=== PATIENT | male | born 1935 | race Caucasian/White ===

== ENCOUNTER 2016-09-05 05:11 | Observation (INO) | payer OTHER ==
[2016-08-27 11:53] VITALS: BMI 24.0
--- NOTE | 2016-08-27 12:24 | PAT Medication Instructions ---
Service Date Aug 27, 2016. Current Home Medication List Aspirin (Aspirin Tab-Chewable *), 1 TABLET PO HS Metoprolol Succ (Toprol Xl) (Toprol-Xl), 1 TABLET PO HS Nitroglycerin (Nitrostat), 0.4 MG UT PRN Simvastatin (Zocor), 1 TABLET PO HS Medication Instructions For Your Scheduled Surgery - Continue as directed: Nitroglycerin (Nitrostat), 0.4 MG UT PRN - Take the following medications as scheduled the night before surgery: Metoprolol Succ (Toprol Xl) (Toprol-Xl), 1 TABLET PO HS Simvastatin (Zocor), 1 TABLET PO HS Aspirin (Aspirin Tab-Chewable *), 1 TABLET PO HS Nothing to eat or drink after midnight If you have any questions please call us at [phone] (Mag Brown PA-C) or [phone] or [phone]
[2016-08-27 13:05] LABS: BASO % 0.3 %; BASO ABS # 0.02 K/uL (0-0.2); COMPLETE YES; EOS % 3.5 %; HEMATOCRIT 43.8 % (42-52); LYMPH % 29.4 %; LYMPH ABS # 1.92 K/uL (1.2-3.4); MEAN CELL VOLUME 99.1 fL (80-100); MEAN CORPUSCULAR HEMOGLOBIN 33.7 pg (25-34); MEAN PLATELET VOLUME 11.5 fL (7.4-10.4); MONO % 7.5 %; NEUT % 59.3 %; PLATELET COUNT 186 K/uL (130-400); RED BLOOD COUNT 4.42 M/uL (4.7-6.1); WHITE BLOOD COUNT 6.53 K/uL (4.8-10.8)
[2016-08-27 13:41] LABS: BUN/CREATININE RATIO 14.5 (10-20); CALCIUM 9.2 mg/dl (8.5-10.1); CREATININE 1.1 mg/dl (0.60-1.40); POTASSIUM 4.8 mmol/L (3.5-5.1)
[~2016-09-05] VITALS: Ht 180.3 cm; Wt 78.8 kg
[2016-09-05] VITALS (11 sets, daily range): BP systolic 139–163; BP diastolic 69–78; PULSE 56–82; TEMP 36.3–36.6; O2SAT 92–97; Ht 180.3 cm; Wt 78.8 kg
[~2016-09-05 05:11] MED LIST: ASPCH81 PO; METO50TA7 PO; NTRGSL/4 UT; SIMV20TA2 PO
[2016-09-05] MEDS ORDERED: CEFAZOLIN 2000 MG/60 ML D5W IV SCH (06:00)
[2016-09-05] MEDS ORDERED: LACTATED RINGER'S 1000ML 1,000 ML IV SCH ×2 (06:00→13:00)
[2016-09-05] MEDS ORDERED: MIDAZOLAM HCL 1 MG/ML 2ML VIAL ONE (06:39)
[2016-09-05] MEDS ORDERED: ONDANSETRON INJ 2 MG/ML 2 ML VIAL ONE (06:39)
[2016-09-05] MEDS ORDERED: FENTANYL CITRATE INJ 50 MCG/1 ML 2 ML VIAL ONE ×2 (06:39→09:58)
[2016-09-05] MEDS ORDERED: PROPOFOL IV EMULSION 10 MG/ML 20 ML VIAL IV ONE (06:39)
[2016-09-05] MEDS ORDERED: LIDOCAINE HCL 2% 2 ML VIAL (20MG/ML) ONE (06:39)
[2016-09-05] MEDS ORDERED: DEXAMETHASONE SOD INJ 4 MG/ML VIAL ONE (06:39)
[2016-09-05] MEDS ORDERED: BUPIVACAINE 0.5 % 5 MG/1 ML MPF 30ML VIAL INJ ONE (07:51)
[2016-09-05] MEDS ORDERED: CEFAZOLIN SOD 1 GM VIAL IRRIG ONE (07:51)
[2016-09-05] MEDS ORDERED: NALOXONE HCL 0.4 MG/1 ML VIAL/CARP IV PRN (08:00)
[2016-09-05] MEDS ORDERED: LABETALOL HCL IV 5 MG/ML 20ML IV PRN (08:00)
[2016-09-05] MEDS ORDERED: ONDANSETRON INJ 2 MG/ML 2 ML VIAL IV PRN ×2 (08:00→09:00)
[2016-09-05] MEDS ORDERED: PROMETHAZINE HCL INJ 12.5 MG in SODIUM CHLORIDE 0.9% 50ML 50 ML IV PRN (08:00)
[2016-09-05] MEDS ORDERED: EpHEDrine SULFATE INJ 50 MG/ML AMP IV PRN (08:00)
[2016-09-05] MEDS ORDERED: HYDROmorphone INJ 1 MG/ML SYR IV PRN (08:00)
[2016-09-05] MEDS ORDERED: ATROPINE SULFATE 0.1 MG/ML 5ML SYR IV PRN (08:00)
--- NOTE | 2016-09-05 08:46 | [facility] Operative Report ---
Operative Report Operative Date Sep 05, 2016. Pre-Operative Diagnosis Bilateral inguinal hernia Post-Operative Diagnosis same Procedure(s) Performed bilateral inguinal hernia repair Surgeon Dr Olvin Steinberg Estimated Blood Loss 10 Findings direct hernias Specimens A: LIPOMA LEFT Anesthesia gen/ LMA Complication(s) None Disposition Recovery Room / PACU I attest to the content of the Intraoperative Record and any orders documented therein. Any exceptions are noted below.
[2016-09-05] MEDS ORDERED: HYDROCODONE/ACETAMOPHEN 5/325MG TAB PO PRN ×2 (09:00)
[2016-09-05] MEDS ORDERED: NITROGLYCERIN 0.4 MG SL PER TAB CHARGE UT PRN (09:00)
[2016-09-05] MEDS ORDERED: MoRPHine SULFATE 2 MG/ML CARP IV PRN (09:00)
[2016-09-05] MEDS ORDERED: MoRPHine SULFATE 4 MG/ML 1 ML CARP\\VIAL IV PRN (09:00)
--- NOTE | 2016-09-05 09:16 | OPERATIVE REPORT ---
DATE OF OPERATION: 09/05/2016 NAME OF OPERATION: Bilateral inguinal hernia repair. PREOPERATIVE DIAGNOSIS: Bilateral inguinal hernias. POSTOPERATIVE DIAGNOSIS: Same with direct defects. STAFF SURGEON: Dr. Steinberg. ANESTHESIA: General LMA. PROCEDURE: The patient was brought into the operating room and placed on the operating table in a supine position. [place] catheter was placed. Pneumatic stockings. His abdomen was prepped and draped in usual fashion. The patient was marked bilaterally for inguinal hernia incisions. Right side was approached first. Skin and subcutaneous tissue were anesthetized. Incision made parallel to the inguinal ligament on the right side, carrying dissection down identifying the external oblique fibers incising them along their length to the external ring, mobilizing the cord structures, identifying a direct hernia. The hernia was reduced. A mesh plug placed, secured to surrounding tissue using 2-0 Ethibond suture. A mesh patch placed into the floor of the canal around the cord structures, secured using 2-0 Ethibond suture. The ilioinguinal and iliohypogastric nerves were identified on both sides during the operation. The area was irrigated with antibiotic solution. The external oblique fibers closed over the mesh on the right side, secured using 2-0 Ethibond suture, then the site anesthetized using 0.5% plain Marcaine. Subcutaneous tissue reapproximated using 2-0 plain catgut suture, then the skin reapproximated using 4-0 nylon and Steri-Strips. The left side was then approached. A similar incision made carrying dissection down identifying the external oblique fibers, incised along their length to the external ring. A similar hernia, but a slight bit larger. Was reduced and a mesh plug placed into the defect, secured to surrounding tissue using 2-0 Ethibond suture. Then a mesh patch placed into the floor of the canal around the cord structures, secured using 2-0 Ethibond suture. Irrigated with antibiotic solution. The external oblique fibers then closed over the mesh around the cord structures using 2-0 Ethibond suture. Then the site anesthetized using 0.5% plain Marcaine. Subcutaneous tissue reapproximated using 2-0 plain catgut suture, then the skin reapproximated using 4-0 nylon suture and Steri-Strips. Dressings were applied and the patient transferred to recovery room in stable condition. I attest to the content of the Intraoperative Record and any orders documented therein. Any exceptio ns are noted below.
[2016-09-05] MEDS ORDERED: IV FLUIDS COMPLETED PRN (10:00)
--- NOTE | 2016-09-05 10:03 | Anesthesiology Progress Note ---
Anesthesia Post Op Note Date & Time Sep 05, 2016 at 10:02 Vital Signs Pain Intensity: 0 Vital Signs Past 12 Hours Date Time Temp Pulse Resp B/P Pulse Ox O2 Delivery O2 Flow Rate FiO2 09/05/16 09:45 63 16 158/68 97 Nasal Cannula 2 09/05/16 09:35 36.8 62 19 158/79 100 Nasal Cannula 2 09/05/16 09:25 65 16 158/75 95 Nasal Cannula 2 09/05/16 09:15 66 20 146/76 100 Mask 10 09/05/16 09:05 66 17 126/72 100 Mask 10 09/05/16 08:55 36.1 71 17 163/76 100 Mask 10 09/05/16 05:56 36.6 20 97 Room Air 09/05/16 05:40 36.6 58 20 158/77 97 Room Air Notes Mental Status: alert / awake / arousable, participated in evaluation Pt Amnestic to Procedure: Yes Nausea / Vomiting: adequately controlled Pain: adequately controlled Airway Patency, RR, SpO2: stable & adequate BP & HR: stable & adequate Hydration State: stable & adequate Anesthetic Complications: no major complications apparent
[2016-09-05] MEDS: DOCUSATE SODIUM/SENNA 50/8.6MG TAB PO SCH ×2 (11:44→21:07)
[2016-09-05] MEDS: MAGNESIUM HYDROXIDE SUSP 30 ML UDC PO SCH ×2 (11:47→21:07)
[2016-09-05] MEDS: CEFAZOLIN IV 1,000 MG in DEXTROSE 5% 50ML 50 ML IV SCH ×2 (13:30→20:10)
[2016-09-05] MEDS ORDERED: CEPH500C2 PO (14:28)
[2016-09-05] MEDS ORDERED: HYDR-5688 PO (14:28)
--- NOTE | 2016-09-05 14:32 | Discharge Instructions ---
Discharge Instructions Admission Reason for Admission: Bilateral Inguinal Hernias Discharge Discharge Diagnosis / Problem: bilateral inguinal hernias Discharge Goals Goal(s): Decrease discomfort, Improve function, Improve disease control Activity Recommendations Activity Limitations: as noted below Lifting Limitations: no more than 10 pounds Exercise/Sports Limitations: until after follow-up appointment May Resume Sexual Activity: when tolerated Shower/Bathe: tomorrow Driving or Machine Use: 1 week SPECIAL CARE INSTRUCTIONS: * Cover incisions and change daily for comfort/drainage. * Avoid constipation- may use Senokot S and Milk of magnesia twice daily as directed on the package * May use ibuprofen for pain as tolerated. * Expect some swelling and bruising. Call your doctor if: * Temperature above 101 degrees * Pain not relieved by pain medicine ordered * There is increased drainage or redness from any incision * You have any unanswered questions or concerns [phone]. FOLLOW UP VISIT: If not already scheduled, please call the office for a follow-up visit. for next week- wound check and some sutures OFFICE PHONE NUMBER: Dr. Steinberg Office . Current Hospital Diet Patient's current hospital diet: Regular Diet Discharge Diet Recommended Diet: Regular Diet Procedures Procedures Performed: Open bilateral inguinal hernia repair Pending Studies Studies pending at discharge: no Medical Emergencies . Who to Call and When: Medical Emergencies: If at any time you feel your situation is an emergency, please call 911 immediately. . Non-Emergent Contact Non-Emergency issues call your: Surgeon . "Provider Documentation" section prepared by Olvin Steinberg. VTE Core Measure Inpt VTE Proph given/why not?: SCD's
--- NOTE | 2016-09-05 16:08 | History and Physical ---
History & Physical Date & Time of Service: Sep 05, 2016 at 15:50 Chief Complaint: Bilateral Inguinal Hernias Primary Care Physician: Bogdan Poole M.D. History of Present Illness Source: patient, family, clinic records, hospital records this is a 80 yo m that is s/p bilateral inguinal hernia. The patient had the surgery on 09/05/16 and patient tolerated the surgery well. He does have a rather significant cardiovascular history. In mar the patient experienced an inferior wall OK. While hospitalization he experienced a second OK and a stent was done a few days later. In May he had a CABg with 2 vessels. Aside from this OK he has been rather healthy. He works out daily and can bike up to 15 miles without SOB/ chest pain. He used to smoker but quit in 1972. He only takes his Torpol and a Statin for his heart as well as a baby ASA and NTG prn. Past Medical/Surgical History Myocardial Infarction S/P Bilateral Inguinal hernia repair HTN Hyperlipidemia Family History Myocardial infarction in first degree male relative FATHER Stroke MOTHER Social History Smoking Status: Former Smoker Smokeless Tobacco Use: No Alcohol Use: none Drug Use: none Marital Status: Housing status: lives with family Occupational Status: retired Multi-Drug Resistant Organisms History of MDRO: No Allergies Coded Allergies: No Known Allergies (Verified , 09/05/16) Home Medications Scheduled Aspirin (Aspirin Tab-Chewable *), 1 TABLET PO HS Cephalexin Monohydrate (Keflex), 500 MG PO TID Metoprolol Succ (Toprol Xl) (Toprol-Xl), 1 TABLET PO HS Nitroglycerin (Nitrostat), 0.4 MG UT PRN Simvastatin (Zocor), 1 TABLET PO HS Scheduled PRN Hydrocodone/Acetaminophen 5MG/325MG ([place] 5MG/325MG), 1-2 TABLET PO q 6 hrs PRN for Pain Review of Systems Constitutional: No fever Eyes: No worsening of vision ENT: No hearing loss Respiratory: No cough, No dyspnea at rest, No dyspnea on exertion, No shortness of breath, No sputum, No wheezing Cardiovascular: No chest pain Abdomen: No constipation, No diarrhea, No nausea, No pain, No vomiting Musculoskeletal: No joint pain, No muscle pain Neurologic: No balance problems, No memory loss, No numbness/tingling, No weakness Psychiatric: No depression symptoms Endocrine: No fatigue Integumentary: No rash Physical Exam Vital Signs Date Time Temp Pulse Resp B/P Pulse Ox O2 Delivery O2 Flow Rate FiO2 09/05/16 14:59 36.4 62 16 139/69 92 Room Air 09/05/16 13:21 148/69 09/05/16 13:10 61 14 163/78 96 Room Air 09/05/16 12:10 36.3 61 19 158/77 95 Room Air 09/05/16 11:10 63 19 160/78 92 Room Air 09/05/16 10:41 36.3 58 18 158/74 95 Nasal Cannula 2.0 09/05/16 10:10 92 Nasal Cannula 2.0 09/05/16 10:10 Nasal Cannula 2.0 09/05/16 10:10 36.5 82 16 154/76 92 2.0 09/05/16 09:45 63 16 158/68 97 Nasal Cannula 2 09/05/16 09:35 36.8 62 19 158/79 100 Nasal Cannula 2 09/05/16 09:25 65 16 158/75 95 Nasal Cannula 2 09/05/16 09:15 66 20 146/76 100 Mask 10 09/05/16 09:05 66 17 126/72 100 Mask 10 09/05/16 08:55 36.1 71 17 163/76 100 Mask 10 09/05/16 05:56 36.6 20 97 Room Air 09/05/16 05:40 36.6 58 20 158/77 97 Room Air General Appearance: WD/WN, no apparent distress Head: normocephalic, atraumatic Eyes: normal inspection ENT: normal ENT inspection Neck: supple Respiratory/Chest: lungs clear, normal breath sounds, no respiratory distress, no accessory muscle use Cardiovascular: regular rate, rhythm, no murmur Abdomen/GI: normal bowel sounds, non tender, soft Back: normal inspection Extremities/Musculoskelatal: no calf tenderness, no pedal edema Neurologic/Psych: alert, normal mood/affect, oriented x 3 Skin: normal color, warm/dry, no rash, + pertinent finding (dressings on bilat incisions) Lymphatic: no adenopathy Diagnostics Laboratory Results Results Past 24 Hours Test 09/05/16 05:35 09/05/16 09:10 Range/Units Bedside Glucose 86 90 70-99 mg/dl EKG Sinus miguel QTC 408 no ischemic changes no ectopic beats Impression Assessment and Plan This is a 80 yo m s/p bilat inguinal hernia repair with a h/o OK/ CABG. S/P Bilat Inguinal Hernia Repair - pain control as per primary team HTN - continue metoprolol - earlier elevations most likely stress induced so will follow vitals Hyper Cholesterolemia - continue simvastatin H/O OK - Continue medications as above - cont NTG prn - hold ASA for now DVT Prophylaxis Resident Physician Supervision Note: I interviewed and examined the patient. Discussed with Dr. Norris and agree with findings and plan as documented in the note. Any exceptions or clarifications are listed here: None Documented By: Ke Hernandez feeling OK. no complaints vitals noted, nad pleasant breathing unlabored CAD - stable. continue home meds except holding asa for now Level of Care Med/Surg VTE Prophylaxis VTE Risk Assessment Done? Y/N: Yes Risk Level: Moderate Given or contraindicated: SCD's Social Service Consult None Apply Note Total Time: Critical Care 30 - 74 minutes Additional Copies To Bogdan Poole M.D.
[2016-09-05] MEDS ORDERED: SIMVASTATIN 20 MG TAB PO SCH (21:00)
[2016-09-05] MEDS ORDERED: METOPROLOL SUCC 50MG EXT REL TAB PO SCH (21:00)
[2016-09-06] MEDS: CEFAZOLIN IV 1,000 MG in DEXTROSE 5% 50ML 50 ML IV SCH ×2 (01:09→08:24)
[2016-09-06 02:46] VITALS: BP 151/74; PULSE 49; TEMP 36.3; O2SAT 97
--- NOTE | 2016-09-06 06:01 | Surgery Progress Note ---
Surgery Progress Note Date of Service Sep 06, 2016. Subjective + feeling well, + pain controlled Objective Vital Signs: Date Time Temp Pulse Resp B/P Pulse Ox O2 Delivery O2 Flow Rate FiO2 09/06/16 02:46 36.3 49 16 151/74 97 Room Air 09/05/16 23:40 36.5 56 16 157/72 93 Room Air 09/05/16 23:20 Room Air 09/05/16 19:54 36.3 65 16 150/71 93 Room Air 09/05/16 15:40 Room Air 09/05/16 14:59 36.4 62 16 139/69 92 Room Air 09/05/16 13:21 148/69 09/05/16 13:10 61 14 163/78 96 Room Air 09/05/16 12:10 36.3 61 19 158/77 95 Room Air 09/05/16 11:10 63 19 160/78 92 Room Air 09/05/16 10:41 36.3 58 18 158/74 95 Nasal Cannula 2.0 09/05/16 10:10 92 Nasal Cannula 2.0 09/05/16 10:10 Nasal Cannula 2.0 09/05/16 10:10 36.5 82 16 154/76 92 2.0 09/05/16 09:45 63 16 158/68 97 Nasal Cannula 2 09/05/16 09:35 36.8 62 19 158/79 100 Nasal Cannula 2 09/05/16 09:25 65 16 158/75 95 Nasal Cannula 2 09/05/16 09:15 66 20 146/76 100 Mask 10 09/05/16 09:05 66 17 126/72 100 Mask 10 09/05/16 08:55 36.1 71 17 163/76 100 Mask 10 General Appearance: no apparent distress Respiratory/Chest: no respiratory distress Incision(s): dry, intact Laboratory Results: Results Past 24 Hours Test 09/05/16 09:10 09/06/16 04:44 Range/Units Bedside Glucose 90 70-99 mg/dl Assessment & Plan 09/06/16- s/p arnoldo ing hernia repair- doing well- d/c home
[2016-09-06 06:10] LABS: HEMATOCRIT 38.5 % (42-52); MEAN CELL VOLUME 98.7 fL (80-100); MEAN CORPUSCULAR HEMOGLOBIN 33.1 pg (25-34); MEAN CORPUSCULAR HGB CONC 33.5 g/dl (32-36); MEAN PLATELET VOLUME 11.2 fL (7.4-10.4); PLATELET COUNT 169 K/uL (130-400); WHITE BLOOD COUNT 13.38 K/uL (4.8-10.8)
[2016-09-06 06:41] LABS: CREATININE 1.1 mg/dl (0.60-1.40)
[2016-09-06 06:42] LABS: CALCIUM 8.4 mg/dl (8.5-10.1); POTASSIUM 3.7 mmol/L (3.5-5.1)
[2016-09-06 07:36] VITALS: BP 152/71; PULSE 51; TEMP 36.4; O2SAT 95
--- NOTE | 2016-09-06 07:55 | DISCHARGE SUMMARY ---
PRINCIPAL DIAGNOSIS: Bilateral inguinal hernias. PROCEDURES: The patient underwent open bilateral inguinal hernia repair. HISTORY OF PRESENT ILLNESS: The patient is a 80-year-old male with bilateral inguinal hernias brought to the hospital for elective open repair. HOSPITAL COURSE: The patient was brought into the hospital and taken to the operating room where he underwent bilateral open inguinal hernia repair. He did tolerate the procedure well, did well postoperatively and is voiding well. I do not think he can be discharged home today to be followed in the surgical clinic next week.
[2016-09-06] MEDS: MAGNESIUM HYDROXIDE SUSP 30 ML UDC PO SCH (08:01)
[2016-09-06] MEDS: DOCUSATE SODIUM/SENNA 50/8.6MG TAB PO SCH (08:01)
[2016-09-06 08:22] VITALS: BP 152/71; PULSE 51; TEMP 36.4; O2SAT 95
--- NOTE | 2016-09-06 10:38 | Anesthesiology Progress Note ---
Anesthesia Post Op Note Date & Time Sep 06, 2016 at 10:37 Vital Signs Pain Intensity: 0.0 Vital Signs Past 12 Hours Date Time Temp Pulse Resp B/P Pulse Ox O2 Delivery O2 Flow Rate FiO2 09/06/16 08:22 36.4 51 14 95 Room Air 09/06/16 07:36 36.4 51 14 152/71 95 Room Air 09/06/16 07:34 Room Air 09/06/16 02:46 36.3 49 16 151/74 97 Room Air 09/05/16 23:40 36.5 56 16 157/72 93 Room Air 09/05/16 23:20 Room Air Notes Mental Status: alert / awake / arousable, participated in evaluation Pt Amnestic to Procedure: Yes Nausea / Vomiting: adequately controlled Pain: adequately controlled Airway Patency, RR, SpO2: stable & adequate BP & HR: stable & adequate Hydration State: stable & adequate Anesthetic Complications: no major complications apparent
--- NOTE | 2016-09-06 11:24 | Family Medicine Progress Note ---
Progress Note Date of Service Sep 06, 2016. Subjective Pt evaluation today including: conversation w/ patient, physical exam, chart review, lab review Pain: 0/10 PO Intake: WNL Voiding: no voiding problems Doing very well! No chest pain SOB Constitutional: No fever Eyes: No worsening of vision ENT: No hearing loss Respiratory: No cough, No dyspnea on exertion, No shortness of breath, No sputum, No wheezing Cardiovascular: No chest pain Abdomen: No constipation, No diarrhea, No nausea, No pain, No vomiting Musculoskeletal: No joint pain, No muscle pain Male : No dysuria Neurologic: No balance problems, No memory loss, No weakness Psychiatric: No anxiety, No depression symptoms Endo: No fatigue Medications Medications Administered Medications (Trade) Dose Ordered Sig/Fer Route Start Time Stop Time Status Last Admin Dose Admin Cefazolin Sodium 60 ml @ 100 mls/hr PREOP IV 09/05/16 06:00 09/05/16 18:00 DC 09/05/16 06:55 100 MLS/HR Lactated Ringer's (Lr 1000ml) 1,000 ml @ 15 mls/hr Q24H IV 09/05/16 06:00 09/05/16 10:50 DC 09/05/16 06:16 15 MLS/HR Cefazolin Sodium (Ancef Inj) 1,000 mg ONE ONCE IRRIG 09/05/16 07:51 09/05/16 07:53 DC 09/05/16 07:54 1,000 MG Bupivacaine HCl (Marcaine 0.5% MPF Inj) 18 ml ONE ONCE INJ 09/05/16 07:51 09/05/16 07:53 DC 09/05/16 07:51 40 ML Metoprolol Succinate (Toprol Xl Tab) 50 mg HS PO 09/05/16 21:00 09/06/16 10:16 DC 09/05/16 21:07 50 MG Simvastatin 20 mg 20 mg HS PO 09/05/16 21:00 09/06/16 10:16 DC 09/05/16 21:07 20 MG Lactated Ringer's 1,000 ml @ 50 mls/hr Q20H IV 09/05/16 13:00 09/06/16 05:58 DC 09/05/16 10:58 50 MLS/HR Cefazolin Sodium/ Dextrose (Ancef Iv/D5 50ml) 55 ml @ 100 mls/hr Q6H IV 09/05/16 14:00 09/06/16 10:16 DC 09/06/16 08:24 100 MLS/HR Acetaminophen/ Hydrocodone Bitart ([place] 5/325 Tab) 1 tab Q4 PRN PO 09/05/16 09:00 09/06/16 10:16 DC 09/05/16 20:10 1 TAB Senna/Docusate Sodium (Senokot S Tab) 1 tab BID PO 09/05/16 11:00 09/06/16 10:16 DC 09/06/16 08:01 1 TAB Magnesium Hydroxide (Milk Of Magnesia Susp) 30 ml BID PO 09/05/16 11:00 09/06/16 10:16 DC 09/05/16 21:07 30 ML Objective Vital Signs Date Time Temp Pulse Resp B/P Pulse Ox O2 Delivery O2 Flow Rate FiO2 09/06/16 08:22 36.4 51 14 95 Room Air 09/06/16 07:36 36.4 51 14 152/71 95 Room Air 09/06/16 07:34 Room Air 09/06/16 02:46 36.3 49 16 151/74 97 Room Air 09/05/16 23:40 36.5 56 16 157/72 93 Room Air 09/05/16 23:20 Room Air 09/05/16 19:54 36.3 65 16 150/71 93 Room Air 09/05/16 15:40 Room Air 09/05/16 14:59 36.4 62 16 139/69 92 Room Air 09/05/16 13:21 148/69 09/05/16 13:10 61 14 163/78 96 Room Air 09/05/16 12:10 36.3 61 19 158/77 95 Room Air Physical Exam General Appearance: WD/WN, no apparent distress Eyes: normal inspection ENT: normal ENT inspection Neck: supple Respiratory/Chest: lungs clear, normal breath sounds, no respiratory distress, no accessory muscle use Cardiovascular: regular rate, rhythm, no murmur Abdomen: normal bowel sounds, non tender, soft Extremities: non-tender, normal inspection Neurologic/Psychiatric: alert, oriented x 3 Skin: normal color, warm/dry, no rash, + pertinent finding (wound is clean dry and intact, dressing on) Lymphatic: no adenopathy Laboratory Results Results Past 24 Hours Test 09/06/16 05:00 Range/Units White Blood Count 13.38 4.8-10.8 K/uL Red Blood Count 3.90 4.7-6.1 M/uL Hemoglobin 12.9 14.0-18.0 g/dL Hematocrit 38.5 42-52 % Mean Corpuscular Volume 98.7 80-100 fL Mean Corpuscular Hemoglobin 33.1 25-34 pg Mean Corpuscular Hemoglobin Concent 33.5 32-36 g/dl RDW Standard Deviation 45.1 36.4-46.3 fL RDW Coefficient of Variation 12.6 11.5-14.5 % Platelet Count 169 130-400 K/uL Mean Platelet Volume 11.2 7.4-10.4 fL Sodium Level 143 136-145 mmol/L Potassium Level 3.7 3.5-5.1 mmol/L Chloride Level 106 98-107 mmol/L Carbon Dioxide Level 28 21-32 mmol/L Anion Gap 9.0 3-11 mmol/L Blood Urea Nitrogen 19 7-18 mg/dl Creatinine 1.10 0.60-1.40 mg/dl Est Creatinine Clear Calc Drug Dose 58.9 ml/min Estimated GFR () 74.1 Estimated GFR (Non- 64.0 BUN/Creatinine Ratio 17.0 10-20 Random Glucose 120 70-99 mg/dl Calcium Level 8.4 8.5-10.1 mg/dl Assessment and Plan This is a 80 yo m s/p bilat inguinal hernia repair with a h/o NH/ CABG. Anticipate d/c today S/P Bilat Inguinal Hernia Repair - pain control as per primary team HTN - continue metoprolol - earlier elevations most likely stress induced so will follow vitals Hyper Cholesterolemia - continue simvastatin H/O NH - Continue medications as above - cont NTG prn - hold ASA for now DVT Prophylaxis Resident Physician Supervision Note: I interviewed and examined the patient. Discussed with Dr. Norris and agree with findings and plan as documented in the note. Any exceptions or clarifications are listed here: None Documented By: Ke Hernandez feeling good. ready to go home. no cardiac sx. vitals noted, nad, breathing unlabored, no appearance of pain. CAD - stable. resume asa once OK w surgery. medically stable for discharge. otherwise as above Continued [facility] stay due to: other Discharge planning: home
== END 2016-09-06 10:15 | disposition home or self-care (01) ==
LOC: ENRESERVTM → ENRESERVDT → C.ACU 05:11 → C.MSN 08:52
PROVIDERS: ADMIT Surgery; ATTEND Surgery
DX: K40.20 Bilateral inguinal hernia, without obstruction or gangrene, not specified as recurrent (principal); I10 Essential (primary) hypertension; E78.00 Pure hypercholesterolemia, unspecified; E78.5 Hyperlipidemia, unspecified; I25.10 Atherosclerotic heart disease of native coronary artery without angina pectoris; I25.2 Old myocardial infarction; Z79.82 Long term (current) use of aspirin; Z95.1 Presence of aortocoronary bypass graft; Z87.891 Personal history of nicotine dependence; Z82.49 Family history of ischemic heart disease and other diseases of the circulatory system; Z82.3 Family history of stroke

== ENCOUNTER → 2017-05-31 | Outpatient (CLI) | payer OTHER ==
[2017-05-31 09:38] LABS: BASO % 0.4 %; BASO ABS # 0.03 K/uL (0-0.2); COMPLETE YES; EOS % 0.9 %; HEMATOCRIT 45.5 % (42-52); IG% 0.6 %; LYMPH % 20.2 %; LYMPH ABS # 1.72 K/uL (1.2-3.4); MEAN CELL VOLUME 97.8 fL (80-100); MEAN CORPUSCULAR HEMOGLOBIN 33.1 pg (25-34); MEAN CORPUSCULAR HGB CONC 33.8 g/dl (32-36); MONO % 8.6 %; NEUT % 69.3 %; PLATELET COUNT 259 K/uL (130-400); RED BLOOD COUNT 4.65 M/uL (4.7-6.1); WHITE BLOOD COUNT 8.53 K/uL (4.8-10.8)
[2017-05-31 10:12] LABS: ALT/SGPT 33 U/L (12-78); BLOOD UREA NITROGEN 15 mg/dl (7-18); BUN/CREATININE RATIO 15.4 (10-20); CALCIUM 9.3 mg/dl (8.5-10.1); CARBON DIOXIDE 27 mmol/L (21-32); CHLORIDE 103 mmol/L (98-107); CHOLESTEROL 140 mg/dl (0-200); GLUCOSE 104 mg/dl (70-99); SODIUM 136 mmol/L (136-145)
[2017-05-31 10:23] LABS: ALB/GLOB RATIO 0.9 (0.9-2); ALKALINE PHOSPHATASE 64 U/L (45-117); AST/SGOT 24 U/L (15-37); CHOLESTEROL/HDL RATIO 2.3; ESTIMATED AVERAGE GLUCOSE 120 mg/dl; HA1C FLAG Normal (Normal); HDL CHOLESTEROL 61 mg/dl; LDL CHOLESTEROL CALCULATED 68 mg/dl; TRIGLYCERIDES 54 mg/dl (0-150); VERY LOW DENSITY LIPOPROT CALC 11 mg/dl
[2017-05-31 10:29] LABS: URINE APPEARANCE CLEAR (CLEAR); URINE BILIRUBIN NEG (NEG); URINE COLOR YELLOW; URINE EPITHELIAL CELL AUTO 0-5 /lpf (0-5); URINE NITRITE NEG (NEG); URINE SPECIFIC GRAVITY 1.007 (1.000-1.030); UROBILINOGEN NEG (NEG); ZZUR CULT IF INDIC CLEAN CATCH NO
[2017-05-31 10:30] LABS: MANUAL MICROSCOPIC REQUIRED? NO; REVIEW REQ? NO
== END | disposition home or self-care (01) ==
LOC: C.LAB1850 08:45
PROVIDERS: ATTEND Internal Medicine
DX: I48.0 Paroxysmal atrial fibrillation (principal); E78.00 Pure hypercholesterolemia, unspecified; R73.01 Impaired fasting glucose

== ENCOUNTER → 2017-06-27 | Outpatient (CLI) | payer OTHER ==
[2017-06-27 12:43] LABS: ALT/SGPT 35 U/L (12-78); AST/SGOT 23 U/L (15-37); BLOOD UREA NITROGEN 19 mg/dl (7-18); BUN/CREATININE RATIO 17.5 (10-20); CALCIUM 8.9 mg/dl (8.5-10.1); CARBON DIOXIDE 28 mmol/L (21-32); CHLORIDE 105 mmol/L (98-107); CREATININE 1.11 mg/dl (0.60-1.40); GLUCOSE 99 mg/dl (70-99); POTASSIUM 4.6 mmol/L (3.5-5.1); SODIUM 139 mmol/L (136-145)
[2017-06-27 12:47] LABS: ALB/GLOB RATIO 1.1 (0.9-2); ALKALINE PHOSPHATASE 43 U/L (45-117)
== END | disposition home or self-care (01) ==
LOC: C.LAB1850 10:27
PROVIDERS: ATTEND Internal Medicine
DX: C61 Malignant neoplasm of prostate (principal); N40.0 Benign prostatic hyperplasia without lower urinary tract symptoms; R77.1 Abnormality of globulin

== ENCOUNTER → 2017-09-07 | Outpatient (CLI) | payer OTHER ==
--- NOTE | 2017-09-07 11:06 | DIAGNOSTIC IMAGING REPORT ---
CHEST 2 VIEWS ROUTINE CLINICAL HISTORY: Fever and cough. COMPARISON STUDY: Chest radiograph February 01, 2011. FINDINGS: There are median sternotomy clips from bypass grafting. No pneumothorax or pleural effusion is noted. There is no consolidation to suggest pneumonia. Cardiomediastinal silhouette is stable. Pulmonary vascularity is normal. IMPRESSION: No acute cardiopulmonary findings. Electronically signed by: Boy Martinez M.D. 09/07/2017 11:04 AM Dictated Date/Time: 09/07/2017 11:03 AM
== END | disposition home or self-care (01) ==
LOC: C.RAD1850 10:25
PROVIDERS: ATTEND Internal Medicine
DX: R05 Cough (principal); R50.9 Fever, unspecified

== ENCOUNTER 2023-08-18 14:50 | Inpatient (IN) ==
--- NOTE | 2023-08-18 14:58 | ED Triage Note ---
Date of Service August 18, 2023 Provider in Triage Author: Dario Ayala History of Present Illness This patient was briefly evaluated while in triage. An abbreviated physical exam was performed. This patient is a 87-year-old Male who presents to the ED for evaluation of intermittent left chest pain that he first noticed last evening while sleeping. The patient was lying on his left side at that time. Patient admits that he did shovel a lot of snow yesterday, and does not know whether it could be from doing so. He did not have any chest pain while shoveling snow. The patient is 24 years status post myocardial infarction, status post stent and CABG x 2. Patient also has history of hypertension, SVT and right bundle branch block. Patient follows with Dr. Currie. Physical Exam CONSTITUTIONAL: Healthy and well nourished. NECK: No JVD or carotid bruits appreciated. RESPIRATORY: Clear to auscultation bilaterally with no wheezing, crackles, rhonchi or stridor. CARDIOVASCULAR: Regular rate and rhythm with no murmurs, rubs or gallops. MUSCULOSKELETAL: No tenderness to palpation over the left anterior chest wall. HEMATOLOGIC: No ecchymosis or petechiae. PSYCHIATRIC: Positive affect. NEUROLOGIC: No focal neurologic deficits noted. Initial orders for labs and / or imaging were placed and patient was placed in the waiting area until a bed is available. Please see further documentation for the full ED course.
[2023-08-18 15:38] LABS: Basophils # (auto) 0.02 K/uL (0.00-0.20); Basophils % (auto) 0.2 %; Eosinophils # (auto) 0.04 K/uL (0.00-0.50); Eosinophils % (auto) 0.3 %; Hematocrit (blood only) 36.3 % (42.0-52.0); Hemoglobin 12.8 g/dl (14.0-18.0); Immature Granulocytes # (auto) 0.04 K/uL (0.01-0.20); Immature Granulocytes % (auto) 0.3 %; Lymphocytes # (auto) 0.69 K/uL (1.20-3.40); Lymphocytes % (auto) 5.5 %; Mean Corpuscular Hemoglobin 33.6 pg (25.0-34.0); Mean Corpuscular Hgb Conc 35.3 g/dL (32.0-36.0); Mean Corpuscular Volume 95.3 fL (80.0-100.0); Mean Platelet Volume 10.2 fL (9.4-12.4); Monocytes # (auto) 1.05 K/uL (0.11-0.59); Monocytes % (auto) 8.3 %; Neutrophils # (auto) 10.75 K/uL (1.40-6.50); Neutrophils % (auto) 85.4 %; Platelet Count 214 K/uL (130-400); RDW Coefficient of Variation 11.9 % (11.5-14.5); RDW Standard Deviation 41.2 fL (36.4-46.3); Red Blood Count 3.81 M/uL (4.70-6.10); White Blood Count 12.59 K/ul (4.8-10.8)
--- NOTE | 2023-08-18 15:43 | XRay Report ---
XR chest 1V not portable CLINICAL HISTORY: Chest pain. COMPARISON STUDY: Chest radiograph November 28, 2022. FINDINGS: Lung volumes are normal. There is no pneumothorax or pleural effusion. No consolidation is present. There is no evidence for pulmonary edema. Mild cardiomegaly is unchanged. Median sternotomy wires and mediastinal surgical clips are noted. IMPRESSION: No acute cardiopulmonary findings. ACT 112: Negative or not required by law. Electronically signed by: Boy Martinez M.D. 08/18/2023 3:42 PM
[2023-08-18 15:54] LABS: Albumin Globulin Ratio 1.5 (0.9-2); Albumin Level 4.6 gm/dl (3.4-5.0); Bilirubin,Total 0.9 mg/dl (0.2-1.0); Calcium 9.7 mg/dl (8.6-10.3); Est GFR (African American) 60.5 ml/min; Est GFR (Non-African American) 52.2 ml/min; Globulin 3.1 gm/dl (2.5-4.0); Potassium 4.4 mmol/L (3.5-5.1); Total Protein 7.7 gm/dl (6.0-8.3)
[2023-08-18 16:00] LABS: Troponin I High Sensitivity 8.6 pg/ml (0-20)
[2023-08-18 16:03] LABS: Partial Thromboplastin Ratio 0.9; Partial Thromboplastin Time 26 Seconds (21-31); Prothrombin Time 11.1 Seconds (9.0-12.0)
[2023-08-18] MEDS ORDERED: ASPIRIN CHEW 324 MG PO STA (18:06)
--- NOTE | 2023-08-18 18:14 | Emergency Department Note ---
Impression & Plan Chest pain, Acute hyponatremia, Urinary tract infection ED Provider Note NAME: ARMOND SUTTON AGE: 87 SEX: M : 1935 ARRIVES VIA: Walk-In INFORMANT: Patient, ED PROVIDER(S): Eduardo Maravilla DO CHIEF COMPLAINT: Chest pain HPI: The patient is an 87-year-old male who presented to the emergency department for evaluation of chest pain. The patient states that he was shoveling snow yesterday. He was mostly using a snowblower. He states that last evening into today he started noticing anterior chest pain. The chest pain was not reproducible. He denies having any leg swelling or leg pain. The patient denies having any fevers or coughing. The patient did not take any nitroglycerin and at this time has no discomfort. He is also been noticing some dysuria and some urinary hesitancy. The patient does have a history of coronary artery disease. He has a history of coronary artery bypass as well. ROS: See above HPI for pertinent positives & negatives. A total of 10 systems reviewed and were otherwise negative. PAST MEDICAL HISTORY: See Below PAST SURGICAL HISTORY: See Below FAMILY HISTORY: See Below SOCIAL HISTORY: See Below HOME MEDICATIONS: See Below ALLERGIES: See Below VITALS: See Below PHYSICAL EXAMINATION: GENERAL: Patient is awake alert in no acute distress patient is resting comfortably and showing no signs of anxiety EYES: The conjunctivae are clear. The pupils are round and reactive. EARS, NOSE, MOUTH AND THROAT: The nose is without any evidence of any deformity. NECK: The neck is nontender and supple. RESPIRATORY: Normal respiratory effort is noted there is no evidence of wheezing rhonchi or rales CARDIOVASCULAR: Regular rate and rhythm noted there no murmurs rubs or gallops normal S1 normal S2. GASTROINTESTINAL: The abdomen is soft. Abdomen is nontender. MUSCULOSKELETAL/EXTREMITIES: There is no evidence of gross deformity full range of motion is noted in the hips and shoulders. SKIN: There is no obvious evidence of any rash. There are no petechiae, pallor or cyanosis noted. NEUROLOGIC: Patient is awake alert and oriented x3 MEDICAL DECISION MAKING: The patient is an 87-year-old male who presented to the emergency department for an evaluation of chest pain. The patient does have a history of coronary artery disease. He appears to be high risk from his history but also he has been having pain that he seems to associate with exertion. Given the patient's laboratory and radiographic studies he does not appear to be having signs of ongoing ischemia at this time. Pain was resolved. Given the patient's risk factors and comorbidities I do feel that he is high risk. For this reason I discussed his condition with the on-call [facility] hospitalist. He was also complaining of some dysuria and frequency. Urinalysis was sent. The patient was treated with aspirin. The patient was also found to be hyponatremic. Further laboratory studies were obtained to try to assess this. It could be related the patient's medications. The patient was reevaluated multiple times and remained pain-free. The patient's urinalysis does appear to be consistent with infection. He was started on Rocephin. Triage Nursing notes reviewed. Prior medical records reviewed Vital Signs: reviewed and remarkable for elevated blood pressure. Differential diagnosis: Cardiac ischemia, aortic dissection, pulmonary embolism, pneumothorax, pneumonia, pericarditis, myocarditis, esophageal rupture, GERD, cholecystitis, pancreatitis, musculoskeletal, as well as other pathologies. ER treatment provided: See below Diagnostics interpreted by me: ECG: EKG was obtained in the emergency department. My interpretation is sinus rhythm at 75 bpm. There was a first-degree AV block noted. A right bundle branch block pattern was noted. There was no PVCs noted. This was compared to a tracing from November 28, 2022. No significant changes were noted. Cardiac Monitoring: An order was placed for continuous cardiac monitoring. The monitor shows a rate of 86 bpm with sinus rhythm. Laboratory studies: As stated above and show below. Imaging studies: See below. Radiographic imaging was reviewed by myself Consultation(s): I discussed this case with Dr. Hernandez who is on-call for the [facility] hospitalist group. 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 Prediabetes Prostate cancer Hyperlipidemia Hypertension Coronary artery disease Surgical History S/P CABG (coronary artery bypass graft) (2000) [place] 2 vessel History of prostate surgery H/O bilateral inguinal hernia repair History of colonoscopy Family History Father Cardiac disorder Myocardial infarction Mother Hypertension Stroke Brother Stroke Other Prostate cancer Denies family history of Ovarian cancer Breast cancer Colorectal cancer Social History Smoking Status: Never smoker Age Started Using Tobacco: 20; Age Quit Using Tobacco: 38; packs per day: 2; Second Hand Exposure: No; Do You Dip or Chew Tobacco: No; Tobacco Cessation Education Requested by Patient: No Hx Alcohol Use: No Hx Substance Use: No Preferred Language: Amharic Communication Ability: Effective Visual Impairment: No Limitations Hearing Ability: Use of Hearing Aid Bank Accountant Required: No Beliefs That Will Affect Care: None marital status: Current Living Situation: Spouse current occupational status: retired Feels Safe at Home: Yes Childhood Exposure to Second-Hand Smoke: Yes Diet: low salt and regular caffeine: Yes Dental Care, Regularly: Yes Physical Activity Frequency: 5-6 Times per Week Physical Activity Frequency Comment: walking, swims, bike rides, weights 45 minutes Seatbelt Use: always Sunscreen Use: Yes Assistive Devices: Glasses and Hearing Aid - Bilateral Allergies Allergies Allergy/AdvReac Type Severity Reaction Status Date / Time No Known Drug Allergies Allergy 0 Verified 08/18/23 19:22 Home Meds Home Medications Medication Instructions Recorded Confirmed aspirin 81 mg tablet,delayed 81 mg PO QPM 10/24/20 08/18/23 release (Adult Low Dose Aspirin) cholecalciferol (vitamin D3) 25 1,000 units PO QAM 10/24/20 08/18/23 mcg (1,000 unit) capsule lisinopril 20 1 tab PO QPM 08/18/23 08/18/23 mg-hydrochlorothiazide 12.5 mg tablet metoprolol succinate 50 mg 50 mg PO QPM 08/18/23 08/18/23 tablet,extended release 24 hr Previous Rx's Medication Instructions Recorded nitroglycerin 0.4 mg sublingual 0.4 mg sublingual Q5M PRN chest 04/03/22 tablet (Nitrostat) pain #25 tabs fluocinolone acetonide oil 0.01 % 5 drp otic (ear) BID PRN itching 7 11/30/22 ear drops days #20 mL atorvastatin 20 mg tablet 20 mg PO DAILY #90 tabs 07/09/23 Results & Data (ED) Vital Signs Vital Signs - 24 hr 08/18/23 14:56 08/18/23 17:59 Temperature 36.5 C Temperature Source Temporal Artery Scan Pulse Rate 84 Pulse Rate [Apical] 87 Respiratory Rate 18 24 Respiratory Effort / Characteristics Non-Labored Spontaneous Respiratory Depth Normal Blood Pressure 117/74 Blood Pressure [Left Arm] 194/88 H Blood Pressure Mean 88 Blood Pressure Mean [Left Arm] 123 Blood Pressure Position Sitting Pulse Oximetry 98 Oxygen Delivery Method Room Air Room Air Sepsis Recent Fever Within 48 Hours No Sepsis New/Unexplained Change in Mental Status No Sepsis Action Taken by Nursing No Action Required Home Medications Current Medication List: was personally reviewed by me Laboratory Data Attestation: I reviewed the patient's lab results. 08/18/23 15:22 08/18/23 15:22 Lab Results 08/18/23 08/18/23 Range/Units 15:22 18:16 WBC 12.59 H (4.8-10.8) K/ul RBC 3.81 L (4.70-6.10) M/uL Hgb 12.8 L (14.0-18.0) g/dl Hct 36.3 L (42.0-52.0) % MCV 95.3 (80.0-100.0) fL MCH 33.6 (25.0-34.0) pg MCHC 35.3 (32.0-36.0) g/dL RDW Std Deviation 41.2 (36.4-46.3) fL RDW Coeff of Renetta 11.9 (11.5-14.5) % Plt Count 214 (130-400) K/uL MPV 10.2 (9.4-12.4) fL Immature Gran % (Auto) 0.3 % Neut % (Auto) 85.4 % Lymph % (Auto) 5.5 % Cecil % (Auto) 8.3 % Eos % (Auto) 0.3 % Baso % (Auto) 0.2 % Neut # (Auto) 10.75 H (1.40-6.50) K/uL Lymph # (Auto) 0.69 L (1.20-3.40) K/uL Cecil # (Auto) 1.05 H (0.11-0.59) K/uL Eos # (Auto) 0.04 (0.00-0.50) K/uL Baso # (Auto) 0.02 (0.00-0.20) K/uL Immature Gran # (Auto) 0.04 (0.01-0.20) K/uL PT 11.1 (9.0-12.0) Seconds INR 1.0 (0.9-1.1) APTT 26 (21-31) Seconds PTT Ratio 0.9 Sodium 127 L (136-145) mmol/L Potassium 4.4 (3.5-5.1) mmol/L Chloride 93 L (98-107) mmol/L Carbon Dioxide 26 (21-32) mmol/L Anion Gap 8 (3-11) BUN 25 H (6-23) mg/dl Creatinine 1.25 (0.6-1.4) mg/dl Est Cr Clr Drug Dosing 46.0 ml/min Est GFR ( Amer) 60.5 ml/min Est GFR (Non-Af Amer) 52.2 ml/min BUN/Creatinine Ratio 20.0 (10-20) Glucose 181 H (70-99(Fasting)) mg/dl Osmolality 276 L (280-300) mOsm/kg Calcium 9.7 (8.6-10.3) mg/dl Total Bilirubin 0.9 (0.2-1.0) mg/dl AST 23 (13-39) U/L ALT 20 (7-52) U/L Alkaline Phosphatase 43 (34-104) U/L Troponin I High Sens 8.6 10.2 (0-20) pg/ml Total Protein 7.7 (6.0-8.3) gm/dl Albumin 4.6 (3.4-5.0) gm/dl Globulin 3.1 (2.5-4.0) gm/dl Albumin/Globulin Ratio 1.5 (0.9-2) Lipase 25 (11-82) U/L Administered Medications Amlodipine Besylate (Amlodipine Besylate 5 Mg Tab) 5 mg PO TODAY@2100 COUNTS INCLUDE 234 BEDS AT THE [facility] Stop: 09/17/23 21:34 Last Admin: 08/18/23 21:41 Dose: 5 mg Documented By: MAYURI Aspirin (Aspirin 81 Mg Ectab) 81 mg PO QPM COUNTS INCLUDE 234 BEDS AT THE [facility] Stop: 09/17/23 20:59 Last Admin: 08/18/23 21:21 Dose: Not Given Documented By: MAYURI Atorvastatin Calcium (Atorvastatin 20 Mg Tab) 20 mg PO TODAY@2100 COUNTS INCLUDE 234 BEDS AT THE [facility] Stop: 09/17/23 21:34 Last Admin: 08/18/23 21:41 Dose: 20 mg Documented By: MAYURI Enoxaparin Sodium (Enoxaparin Inj 40 Mg/0.4 Ml Syr) 40 mg SQ Q24H [facility] Stop: 09/17/23 20:59 Last Admin: 08/18/23 21:42 Dose: 40 mg Documented By: MAYURI Lisinopril (Lisinopril 20 Mg Tab) 20 mg PO TODAY@2100 [facility] Stop: 09/17/23 21:34 Last Admin: 08/18/23 21:41 Dose: 20 mg Documented By: MAYURI Metoprolol Succinate (Metoprolol Succ 50mg Ext Rel Tab) 50 mg PO PM [facility] Stop: 09/17/23 22:59 Last Admin: 08/18/23 22:49 Dose: 50 mg Documented By: MAYURI Discontinued Medications Aspirin (Aspirin Chew 324 Mg) 324 mg PO NOW [facility] Stop: 08/18/23 18:07 Last Admin: 08/18/23 18:18 Dose: 324 mg Documented By: MAYURI Vitamin D (Cholecalciferol 1,000 Units 25 Mcg Tab) 1,000 units PO QPM [facility] Stop: 09/17/23 20:59 Last Admin: 08/18/23 21:45 Dose: Not Given Documented By: MAYURI Imaging Data Attestation: I personally reviewed and interpreted this imaging study as follows: My Impression: 1 view chest x-ray was obtained in the emergency department. My interpretation is no free air or definite infiltrate, final report below Radiologist's Impression: Chest X-Ray 08/18/23 14:58 XR chest 1V not portable CLINICAL HISTORY: Chest pain. COMPARISON STUDY: Chest radiograph November 28, 2022. FINDINGS: Lung volumes are normal. There is no pneumothorax or pleural effusion. No consolidation is present. There is no evidence for pulmonary edema. Mild cardiomegaly is unchanged. Median sternotomy wires and mediastinal surgical clips are noted. IMPRESSION: No acute cardiopulmonary findings. ACT 112: Negative or not required by law. Electronically signed by: Boy Martinez M.D. 08/18/2023 3:42 PM Discharge Plan Visit Data Chief Complaint: Cardiac Assessment Stated Complaint: CHEST PAINS - HX OF HEART ATTACK ED Provider: Eduardo Maravilla Discharge Problem: Chest pain, Acute hyponatremia, Urinary tract infection Patient Disposition: Admitted As Inpatient Discharge Instructions Interventions: ED Discharge Assessment Last Done: 08/18/23 20:42 Discharge Problem: Chest pain Qualifiers: Chest pain type: unspecified Qualified Code(s): R07.9 - Chest pain, unspecified Urinary tract infection Qualifiers: Urinary tract infection type: site unspecified Hematuria presence: without hematuria Qualified Code(s): N39.0 - Urinary tract infection, site not specified
--- NOTE | 2023-08-18 19:12 | History & Physical Report ---
Date of Service August 18, 2023 Assessment & Plan (1) Chest pain: Plan: almost certainly musculoskeletalboth based on his history/exam and based on his reassuring cardiac workup thus far. That said, the patient is a very reasonable concern for cardiac assessment given his heart historywill trend with serial troponins and check an echocardiogram in the morning. Given how atypical his symptoms were, and given that he exerted rather heavily while shoveling snow without symptoms, ruling out OH with reassuring cardiac enzymes and stable echo should more than suffice. Certainly if he shows a bump in troponin or new wall motion abnormality, then we will consult cardiology. (2) Acute hyponatremia: Plan: Almost certainly salt wasting from hydrochlorothiazide. Will put this on hold. See below. Follow-up basic metabolic panel in the morning. Appears to be asymptomatic in this regard. (3) Hypertension: Plan: They note that he was started on hydrochlorothiazide because his blood pressure control was less than optimal whenever he was just on his metoprolol and lisinopril. They note that his resting heart rate has been too low to increase the metoprolol further, and we discussed that while we could increase the lisinopril further, it generally is not the best at "getting the numbers" even though it is a very good agent for morbidity/mortality reduction. Stopping the hydrochlorothiazide due to hyponatremiaand will initiate amlodipine 5 mg dailydiscussed potential risks of orthostasis or edema. (4) Coronary artery disease: Plan: Home meds, appears to be stable, actually given his levels of exertion without symptoms, I suspect he is doing quite wellbut I understand his concerns with his chest pain given his history. (5) DVT prophylaxis: Plan: Lovenox (6) Discharge planning issues: Plan[facility] He comes from home lives independentlyI expect he will be able to go back home independently at discharge. In discussion of CODE STATUS he is a DNR/DNI. History of Present Illness Chief Complaint: Chest pain Primary Care Provider: Bogdan Poole MD patient is a very pleasant 87-year-old male who presents with chest pain that woke him from sleep. He notes that he and his were shoveling snow yesterdayhe was mostly using the snowblower but was shoveling some. He is lef t-handed. He did not have any chest pain/pressure/undue shortness of breath while he was shoveling or snowblowing, and seems to have felt okay whenever he went to bed. However, he was awoken from sleep multiple times with short-lived (seconds long) episodes of left sided chest paininitially describes as sharp, but whenever asked if that means stabbing he notes that is not the case, asking him to elaborate further it feels like electrical jolts or tingling type of sensation, coming and going for no clear provoking or alleviating factors, lasting for seconds, no associated symptoms, no shortness of breath. Asking him to localize it he really points closer to his mid axillary line than anywhere else on his chest. He feels fine now, did have 1 brief episode while he was in the ER waiting area. He is very active Overall. A few months ago he was started on hydrochlorothiazide due to relatively poor blood pressure control, he feels like he has been tolerating it well. eating an drinking well. Also notes feeling an urgency to void, he notes nursing did a bladder scan and told him there was a little bit of residual but not enough to really worry about, but he still really feels like he has to pee. Has had a little bit of dysuria. Most of the urinary symptoms are going on a while, the dysuria is new. Allergies Allergy/AdvReac Type Severity Reaction Status Date / Time No Known Drug Allergies Allergy 0 Verified 08/18/23 19:22 Home Medications Medication Instructions Recorded Confirmed Type aspirin 81 mg tablet,delayed 81 mg PO QPM 10/24/20 08/18/23 History release (Adult Low Dose Aspirin) cholecalciferol (vitamin D3) 25 1,000 units PO QAM 10/24/20 08/18/23 History mcg (1,000 unit) capsule nitroglycerin 0.4 mg sublingual 0.4 mg sublingual Q5M PRN chest 04/03/22 08/18/23 Rx tablet (Nitrostat) pain #25 tabs fluocinolone acetonide oil 0.01 % 5 drp otic (ear) BID PRN itching 7 11/30/22 08/18/23 Rx ear drops days #20 mL atorvastatin 20 mg tablet 20 mg PO DAILY #90 tabs 07/09/23 08/18/23 Rx lisinopril 20 1 tab PO QPM 08/18/23 08/18/23 History mg-hydrochlorothiazide 12.5 mg tablet metoprolol succinate 50 mg 50 mg PO QPM 08/18/23 08/18/23 History tablet,extended release 24 hr Past Med/Surg History Medical History 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 Prediabetes Prostate cancer Hyperlipidemia Hypertension Coronary artery disease Surgical History S/P CABG (coronary artery bypass graft) (2000) [place] 2 vessel History of prostate surgery H/O bilateral inguinal hernia repair History of colonoscopy Family History Father Cardiac disorder Myocardial infarction Mother Hypertension Stroke Brother Stroke Other Prostate cancer Denies family history of Ovarian cancer Breast cancer Colorectal cancer Social History Smoking Status: Never smoker Age Started Using Tobacco: 20; Age Quit Using Tobacco: 38; packs per day: 2; Second Hand Exposure: No; Do You Dip or Chew Tobacco: No; Hx Alcohol Use: No Hx Substance Use: No Preferred Language: [place] Citizen Visual Impairment: No Limitations Hearing Ability: Use of Hearing Aid marital status: Current Living Situation: Spouse current occupational status: retired Feels Safe at Home: Yes Childhood Exposure to Second-Hand Smoke: Yes Diet: low salt and regular caffeine: Yes Dental Care, Regularly: Yes Physical Activity Frequency: 5-6 Times per Week Physical Activity Frequency Comment: walking, swims, bike rides, weights 45 minutes Seatbelt Use: always Sunscreen Use: Yes Review of Systems Review of Systems: All systems reviewed & are unremarkable except as noted in HPI & below Physical Exam Physical Exam: In general he is awake and alert pleasant no distress. HEENT normocephalic atraumatic mucous membranes moist. Cardio is regular without rubs murmurs or gallops. Lungs clear to auscultation bilaterally no rales rhonchi or wheeze with good effort. Skin shows no rashes no pallor or icterus. Extremities show no cyanosis clubbing. Neuro shows cranial nerves II through XII be grossly intact gross motor and sensory are intact. Musculoskeletal does not show reproducible rib pain, although he is able to tell me that whenever I am pushing lateral ribs around his mid axillary line may be slightly anterior that is where he was feeling the sensation. Labs and EKG noted, chest x-ray noted Results & Data Results & Data Vital Signs (Past 12 Hours) Vital Signs Temp Pulse Pulse Resp BP BP Pulse Ox 08/18/23 17:59 87 24 194/88 H 08/18/23 14:56 97.7 F 84 18 117/74 98 O2 Del Method 08/18/23 17:59 Room Air 08/18/23 14:56 Room Air Code Status & VTE Plan VTE Prophylaxis Plan VTE Prophylaxis will be ordered: Yes PG Care Time/CCT Total # of Minutes Spent Total Time Spent with Patient: Total time spent is greater than 50% in coordination of care (as documented) at patient's floor/unit and/or counseling patient: Coding Level of Care Code 85461 INT INP/OBS CARE 3/75MIN Diagnoses Chest pain R07.9 Chest pain type: unspecified Acute hyponatremia E87.1 Hypertension I10 Coronary artery disease I25.10 DVT prophylaxis Z29.9 Discharge planning issues Z02.9 (1) Chest pain Chest pain type: unspecified Qualified Code(s): R07.9 - Chest pain, unspecified
[2023-08-18 19:59] LABS: Appearance Urine Cloudy (Clear); Bacteria Urine Automated 1+ (Negative); Bilirubin Urine Negative (Negative); Blood Urine 1+ (Negative); Cast Urine Automated 0 /lpf (0-5); Color Urine Yellow; Epithelial Cell Urine Auto 0-5 /lpf (0-5); Glucose Urine UA Negative (Negative); Ketones Urine Negative (Negative); Leukocyte Esterase Urine 3+ (Negative); Nitrite Urine Positive (Negative); Protein Urine Negative (Negative); Specific Gravity Urine 1.011 (1.000-1.030); Urobilinogen Urine Negative (Negative); WBC Urine Automated >30 /hpf (0-5); pH Urine 6.5 (4.5-7.5)
[2023-08-18] MEDS ORDERED: ALUMINUM/MAGNESIUM SUSP 30 ML UDC PO PRN (20:41)
[2023-08-18] MEDS ORDERED: ONDANSETRON INJ 2 MG/ML 2 ML VIAL IV PRN (20:41)
[2023-08-18] MEDS ORDERED: POLYETHYLENE (MIRALAX) 17 GM PACK PO PRN (20:41)
[2023-08-18] MEDS ORDERED: ACETAMINOPHEN 325 MG TAB PO PRN (20:41)
[2023-08-18] MEDS ORDERED: MAGNESIUM HYDROXIDE SUSP 30 ML UDC PO PRN (20:41)
[2023-08-18] MEDS ORDERED: NITROGLYCERIN SL 0.4 MG/TAB TAB SL PRN (20:41)
[2023-08-18] MEDS ORDERED: CHOLECALCIFEROL 1,000 UNITS 25 MCG TAB PO SCH (21:00)
[2023-08-18] MEDS: ASPIRIN 81 MG ECTAB PO SCH (21:21)
[2023-08-18] MEDS ORDERED: Nursing to Pharmacy Communication SCH ×2 (21:30→22:30)
[2023-08-18] MEDS: amLODIPine BESYLATE 5 MG TAB PO SCH (21:41)
[2023-08-18] MEDS: lisinopril 20 MG TAB PO SCH (21:41)
[2023-08-18] MEDS: ATORVASTATIN 20 MG TAB PO SCH (21:41)
[2023-08-18] MEDS: ENOXAPARIN INJ 40 MG/0.4 ML SYR SQ SCH (21:42)
[2023-08-18] MEDS: METOPROLOL SUCC 50MG EXT REL TAB PO SCH (22:49)
[2023-08-19] MEDS ORDERED: cefTRIAXone SODIUM 2,000 MG/50 ML BAG IV STA (00:01)
[2023-08-19 04:51] LABS: Basophils # (auto) 0.04 K/uL (0.00-0.20); Basophils % (auto) 0.2 %; Hematocrit (blood only) 35.8 % (42.0-52.0); Hemoglobin 12.4 g/dl (14.0-18.0); Immature Granulocytes % (auto) 0.6 %; Lymphocytes # (auto) 0.42 K/uL (1.20-3.40); Lymphocytes % (auto) 2.5 %; Mean Corpuscular Hemoglobin 33.2 pg (25.0-34.0); Mean Corpuscular Hgb Conc 34.6 g/dL (32.0-36.0); Mean Platelet Volume 10.5 fL (9.4-12.4); Monocytes # (auto) 1.74 K/uL (0.11-0.59); Monocytes % (auto) 10.4 %; Neutrophils # (auto) 14.42 K/uL (1.40-6.50); Neutrophils % (auto) 86.3 %; Platelet Count 204 K/uL (130-400); RDW Coefficient of Variation 11.8 % (11.5-14.5); RDW Standard Deviation 41.2 fL (36.4-46.3); Red Blood Count 3.73 M/uL (4.70-6.10); White Blood Count 16.72 K/ul (4.8-10.8)
[2023-08-19 05:02] LABS: BUN Creatinine Ratio 20.9 (10-20); Calcium 9.3 mg/dl (8.6-10.3); Creatinine Clr Calc Pharmacy 37.9 ml/min; Est GFR (African American) 58.2 ml/min; Est GFR (Non-African American) 50.2 ml/min
[2023-08-19 05:25] LABS: Troponin I High Sensitivity 16.7 pg/ml (0-20)
--- NOTE | 2023-08-19 08:08 | Electrocardiogram Report ---
Test Reason : Blood Pressure : / mmHG Vent. Rate : 075 BPM Atrial Rate : 075 BPM P-R Int : 232 ms QRS Dur : 182 ms QT Int : 456 ms P-R-T Axes : 058 -87 049 degrees QTc Int : 509 ms Sinus rhythm with 1st degree A-V block Right bundle branch block Left anterior fascicular block Abnormal ECG When compared with ECG of 28-NOV-2022 19:37, No significant change was found Confirmed by Uriel Currie ([id number]) on 08/19/2023 8:08:20 AM Referred By: REFERRED SELF Confirmed By:Uriel Currie
[2023-08-19] MEDS: CHOLECALCIFEROL 1,000 UNITS 25 MCG TAB PO SCH (08:41)
[2023-08-19] MEDS ORDERED: lisinopril 20 MG TAB PO SCH (09:00)
[2023-08-19] MEDS ORDERED: METOPROLOL SUCC 50MG EXT REL TAB PO SCH (09:00)
[2023-08-19] MEDS ORDERED: amLODIPine BESYLATE 5 MG TAB PO SCH (09:00)
[2023-08-19] MEDS ORDERED: ATORVASTATIN 20 MG TAB PO SCH (09:00)
--- NOTE | 2023-08-19 14:20 | XCELERA ---
[id number] [id number]
--- NOTE | 2023-08-19 16:23 | Hospitalist Progress Note ---
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 normal RV size (2) Urinary tract infection: Plan: - Positive UA, UC pending - Receiving Rocephin while inpatient, will need transitioned to PO therapy for discharge pending culture results (3) Acute hyponatremia: Plan: -Likely from HCTZ, started in Novemeber. HCtX on hold. -Currently asymptomatic - Trend BMPs (4) Hypertension: Plan: - Stop HCTZ - continue amlodipine 5mg (started during admisson) - Continue home Lisinopril (5) Coronary artery disease: Plan: Home meds, appears to be stable, actually given his levels of exertion without symptoms, I suspect he is doing quite wellbut I understand his concerns with his chest pain given his history. (6) DVT prophylaxis: Plan: Lovenox (7) Discharge planning issues: Plan: observation on telemetry, [facility] service. He comes from home lives independentlyI expect he will be able to go back home independently at discharge. In discussion of CODE STATUS he is a DNR/DNI. Plan Dispo continued inpatient stay - likely d/c tomorrow with PO antibiotics Admission and Anticipated Discharge Date Admission Date: August 18, 2023 Subjective Patient seen in the ED, present at bedside. Reports he has had additonal episode of left sided chest pain overnight when he was laying on his left side. No associated shortness of breath. Patient also reports urinary frequency overnight, up to the bathroom 10+ times with minimal urine output. Denies fevers or chills. Tele - 70s Review of Systems Review of Systems: All systems reviewed & are unremarkable except as noted in Subjective Physical Exam Physical Exam: General: NAD, Sitting up in bed, VS as above Resp: normal respiratory effort, lungs clear to auscultation CV: RRR, no murmur. Chest pain not reproducible on exam Abd: normal bowel sounds, non tender, no hepatosplenomegaly Extremities: Moves all extremities, no edema Neuro: A&O x3, Results & Data Results & Data Vital Signs (Past 12 Hours) Vital Signs Pulse Pulse Resp BP BP Pulse Ox O2 Del Method 08/19/23 15:00 73 18 117/56 L 96 Room Air 08/19/23 11:10 75 24 160/60 H 95 Room Air 08/19/23 08:35 81 08/19/23 04:30 76 17 120/61 Laboratory Results CBC and chemistry, UA reviewed Diagnostic Findings Echo cardiogram reviewed PG Care Time/CCT Total # of Minutes Spent Total Time Spent with Patient: Total time spent is greater than 50% in coordination of care (as documented) at patient's floor/unit and/or counseling patient: Coding Level of Care Code 53447 SUB INP/OBS CARE 2/35MIN Diagnoses Chest pain R07.9 Chest pain type: unspecified Urinary tract infection N39.0 Hematuria presence: without hematuria Urinary tract infection type: site unspecified Acute hyponatremia E87.1 Hypertension I10 Coronary artery disease I25.10 DVT prophylaxis Z29.9 Discharge planning issues Z02.9 (1) Chest pain Chest pain type: unspecified Qualified Code(s): R07.9 - Chest pain, unspecified (2) Urinary tract infection Hematuria presence: without hematuria Urinary tract infection type: site unspecified Qualified Code(s): N39.0 - Urinary tract infection, site not specified
[2023-08-19] MEDS: ASPIRIN 81 MG ECTAB PO SCH (20:32)
[2023-08-19] MEDS: METOPROLOL SUCC 50MG EXT REL TAB PO SCH (20:32)
[2023-08-19] MEDS: ATORVASTATIN 20 MG TAB PO SCH (20:32)
[2023-08-19] MEDS: amLODIPine BESYLATE 5 MG TAB PO SCH (20:32)
[2023-08-19] MEDS: cefTRIAXone SODIUM 2,000 MG in DEXTROSE 5 % MINI-B 50 ML IV SCH (20:32)
[2023-08-19] MEDS: lisinopril 20 MG TAB PO SCH (20:32)
[2023-08-19] MEDS: ENOXAPARIN INJ 40 MG/0.4 ML SYR SQ SCH (20:38)
[2023-08-20 05:17] LABS: BUN Creatinine Ratio 22.5 (10-20); Calcium 8.9 mg/dl (8.6-10.3); Creatinine Clr Calc Pharmacy 27.4 ml/min; Est GFR (African American) 39.4 ml/min; Potassium 3.9 mmol/L (3.5-5.1)
[2023-08-20] MEDS: CHOLECALCIFEROL 1,000 UNITS 25 MCG TAB PO SCH (08:34)
--- NOTE | 2023-08-20 09:02 | Hospitalist Progress Note ---
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 normal RV size (2) Urinary tract infection: Plan: - Positive UA, UC pansensitive e coli - Receiving Rocephin while inpatient, will need transitioned to PO amoxil on dc (3) Acute hyponatremia: Plan: -Likely from HCTZ, started in Novemeber. HCtX on hold. Examines euvolemic likely SIADH was not fluid restricted on 08 19 we will fluid restrict on 08 20. Repeating urine sodium and urine osmolality natasha on ckd 3 he has a history of prostate related issues we will check an ultr asound for obstructive uropathy (4) Hypertension: Plan: - Stop HCTZ - continue amlodipine 5mg (started during admisson) - Continue home Lisinopril (5) Coronary artery disease: Plan: Home meds, appears to be stable, actually given his levels of exertion without symptoms, I suspect he is doing quite wellbut I understand his concerns with his chest pain given his history. (6) DVT prophylaxis: Plan: Lovenox (7) Discharge planning issues: Plan: CODE STATUS he is a DNR/DNI. Prolonged hospital stable converted observation to admission Plan Dispo continued inpatient stay - likely d/c tomorrow with PO antibiotics Admission and Anticipated Discharge Date Admission Date: August 18, 2023 Subjective Patient seen in the company of his he was expecting to go home today. However his serum sodium level has not improved and his renal function has worsened slightly. He himself examines euvolemic Patient is complaints of chest pain have improved He now complains of some dysuria and he is known to have a urinary tract infection currently Physical Exam Physical Exam: As mentioned exam is euvolemic is moist mucous membranes there is no significant JVD is no peripheral fluid edema Cardiac exam is rate His lungs are clear Abdomen is NABS he has no abdominal bruits Extremities are without edema Results & Data Results & Data Vital Signs (Past 12 Hours) Vital Signs Temp Pulse Pulse Resp BP BP Pulse Ox 08/20/23 07:42 97.7 F 60 16 136/57 L 96 08/20/23 07:00 70 23 08/20/23 07:00 122/64 08/20/23 05:00 58 L 20 08/20/23 05:00 131/60 08/20/23 04:58 59 L 18 08/20/23 04:58 124/57 L 08/20/23 04:00 61 12 08/20/23 02:53 64 16 08/20/23 02:53 105/54 L 08/20/23 02:00 74 08/20/23 01:00 125/63 08/20/23 01:00 61 20 08/20/23 00:00 129/62 08/20/23 00:00 67 25 H 08/19/23 23:25 64 08/19/23 23:00 64 22 08/19/23 23:00 112/59 L 08/19/23 22:00 72 20 08/19/23 22:00 121/58 L 08/19/23 21:00 71 14 08/19/23 21:00 130/63 O2 Del Method 08/20/23 07:42 Room Air 08/20/23 07:00 08/20/23 07:00 08/20/23 05:00 08/20/23 05:00 08/20/23 04:58 08/20/23 04:58 08/20/23 04:00 08/20/23 02:53 08/20/23 02:53 08/20/23 02:00 08/20/23 01:00 08/20/23 01:00 08/20/23 00:00 08/20/23 00:00 08/19/23 23:25 08/19/23 23:00 08/19/23 23:00 08/19/23 22:00 08/19/23 22:00 08/19/23 21:00 08/19/23 21:00 Laboratory Results Reviewed CBC Reviewed chemistry Reviewed serum osmolality PG Care Time/CCT Total # of Minutes Spent Total Time Spent with Patient: Total time spent is greater than 50% in coordination of care (as documented) at patient's floor/unit and/or counseling patient: Coding Level of Care Code 13714 SUB INP/OBS CARE 2/35MIN Diagnoses Chest pain R07.9 Chest pain type: unspecified Urinary tract infection N39.0 Hematuria presence: without hematuria Urinary tract infection type: site unspecified Acute hyponatremia E87.1 Hypertension I10 Coronary artery disease I25.10 DVT prophylaxis Z29.9 Discharge planning issues Z02.9 (1) Chest pain Chest pain type: unspecified Qualified Code(s): R07.9 - Chest pain, unspecifi ed (2) Urinary tract infection Hematuria presence: without hematuria Urinary tract infection type: site unspecified Qualified Code(s): N39.0 - Urinary tract infection, site not specified
[2023-08-20 10:59] LABS: BUN Creatinine Ratio 25.7 (10-20); Calcium 8.7 mg/dl (8.6-10.3); Creatinine Clr Calc Pharmacy 29.2 ml/min; Est GFR (African American) 42.6 ml/min; Est GFR (Non-African American) 36.8 ml/min; Potassium 3.8 mmol/L (3.5-5.1)
[2023-08-20] MEDS ORDERED: PHENAZOPYRIDINE HCL 200 MG TAB PO STA (11:11)
--- NOTE | 2023-08-20 13:46 | Ultrasound Report ---
ULTRASOUND KIDNEYS AND BLADDER CLINICAL HISTORY: Acute renal insufficiency. COMPARISON STUDY: No priors. TECHNIQUE: Real-time, grayscale, and color flow sonography of the kidneys and bladder is performed. I mages are reviewed in the transverse and longitudinal planes. FINDINGS: Kidneys: The kidneys are normal in size and echotexture. The right kidney measures 10.9 cm in length and the left kidney measures 10.7 cm in length. There is no hydronephrosis. No shadowing renal calcu li are identified. A 1.5 cm cyst is incidentally noted on the right. There is no sonographic evidence of contour deforming renal mass lesion. No perinephric fluid is identified. Bladder: The prostate gland is enlarged and heterogeneous noting the renal hypertrophy. The bladder w all is thickened/trabeculated indicating chronic outlet obstruction. Bilateral ureteral jets were see n. IMPRESSION: 1. The kidneys are normal in size and without hydronephrosis. 2. Prostatomegaly with evidence of chronic bladder outlet obstruction. ACT 112: Negative or not required by law. Electronically signed by: Jan Leal M.D. 08/20/2023 1:44 PM
[2023-08-20 14:58] VITALS: RESP 16
[2023-08-20] MEDS: ATORVASTATIN 20 MG TAB PO SCH (20:30)
[2023-08-20] MEDS: amLODIPine BESYLATE 5 MG TAB PO SCH (20:31)
[2023-08-20] MEDS: ENOXAPARIN INJ 40 MG/0.4 ML SYR SQ SCH (20:32)
[2023-08-20] MEDS: METOPROLOL SUCC 50MG EXT REL TAB PO SCH (20:33)
[2023-08-20] MEDS: ASPIRIN 81 MG ECTAB PO SCH (20:33)
[2023-08-20] MEDS: cefTRIAXone SODIUM 2,000 MG in DEXTROSE 5 % MINI-B 50 ML IV SCH (20:38)
[2023-08-21] MEDS: CHOLECALCIFEROL 1,000 UNITS 25 MCG TAB PO SCH (09:42)
[2023-08-21] MEDS ORDERED: TAMSULOSIN HCL 0.4 MG CAP PO ONE (10:05)
[2023-08-21] MEDS ORDERED: SODIUM CHLORIDE 0.9% 1,000 ML IV SCH (10:15)
[2023-08-21] MEDS ORDERED: SODIUM CHLORIDE 1 GM TABLET PO SCH (10:30)
--- NOTE | 2023-08-21 11:02 | Communication Note ---
Date of Service: August 21, 2023
[2023-08-21 15:10] LABS: BUN Creatinine Ratio 30.4 (10-20); Calcium 8.9 mg/dl (8.6-10.3); Est GFR (African American) 49.3 ml/min; Est GFR (Non-African American) 42.5 ml/min; Potassium 3.7 mmol/L (3.5-5.1)
[2023-08-21 15:23] VITALS: BP 130/68; PULSE 74; TEMP 98.1; O2SAT 96
--- NOTE | 2023-08-21 16:41 | Discharge Summary ---
Date of Service August 21, 2023 Admission HPI Per Admitting Provider patient is a very pleasant 87-year-old male who presents with chest pain that woke him from sleep. He notes that he and his were shoveling snow yesterdayhe was mostly using the snowblower but was shoveling some. He is left-handed. He did not have any chest pain/pressure/undue shortness of breath while he was shoveling or snowblowing, and seems to have felt okay whenever he went to bed. However, he was awoken from sleep multiple times with short-lived (seconds long) episodes of left sided chest paininitially describes as sharp, but whenever asked if that means stabbing he notes that is not the case, asking him to elaborate further it feels like electrical jolts or tingling type of sensation, coming and going for no clear provoking or alleviating factors, lasting for seconds, no associated symptoms, no shortness of breath. Asking him to localize it he really points closer to his mid axillary line than anywhere else on his chest. He feels fine now, did have 1 brief episode while he was in the ER waiting area. He is very active Overall. A few months ago he was started on hydrochlorothiazide due to relatively poor blood pressure control, he feels like he has been tolerating it well. eating an drinking well. Also notes feeling an urgency to void, he notes nursing did a bladder scan and told him there was a little bit of residual but not enough to really worry about, but he still really feels like he has to pee. Has had a little bit of dysuria. Most of the urinary symptoms are going on a while, the dysuria is new. Principal Diagnosis e coli uti poa, cannot rule out prostatitis natasha with suspicion of parital bladder outlet comprimise hyponatremia, improved Discharge Exam awake and alert, no forcal issues cardiac is regular Discharge Data Allergies Allergy/AdvReac Type Severity Reaction Status Date / Time No Known Drug Allergies Allergy 0 Verified 08/18/23 19:22 Consultations 08/18/23 18:11 ED Decision to Admit Stat 08/18/23 18:34 ED Decision to Admit Stat Ordered Studies 08/20/23 11:07 US Renal Bladder [US renal/blad retro comp] Routine Hospital Course (1) Chest pain: - Likely MSK given history/exam and benign workup since resolved - Hx of CABG x2, CAD - negative troponin - ECHO: EF 50-55%, 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 normal RV size (2) Urinary tract infection: - Positive UA, UC e coli discharged on augmentin to complete 14 day course as cannot rule out prostatitis (3) Acute hyponatremia: -Likely from HCTZ, started in May. will hold th is and lisinopril on dc spoke to urology will have salt tablets and was given one dose lasix inpt , sodium improved to 131 natasha on ckd 3 he has a history of prostate related issues we will check an ultrasound for obstructive uropathy spoke to urology will have follow up, starting flomax (4) Hypertension: - Stop HCTZ lisinopril - continue metoprolol (5) Coronary artery disease: Home meds, appears to be stable, cp on presentation not suspected to be cardiac Plan CODE STATUS he is a DNR/DNI. Total Time Total Time Spent Total Time Spent (In Minutes): It required greater than 30 minutes to prepare this patient for discharge. Discharge Plan Discharge Items Patient Disposition: Home - Self-Care Reason For Visit: CHEST PAIN Discharge Diagnosis: urinary tract infection poa prostate enlargement acute kidney distress low sodium level Activity: Resume your previous activity Non-emergency contact: Primary Care Provider Call non-emergency contact if: your symptoms worsen Follow-up/Referrals: Tiffanie Melissa PA-C [Physician [employer]] - 08/23/23 11:00 am (Hospital follow up Please arrive 15 minutes prior to scheduled appointment) Bogdan Poole MD [Primary Care Provider] - Diet: Regular Ambulatory Orders: Basic Metabolic Panel (Routine) Timeframe: 2 Days Location: Determined by Patient Ordered By: Homar Olivera Attending Provider Instructions: please take a salt pill a day have your blood checked on 08/23/23 please follow up with Dr Child and Dr Poole when you are hydrating please try to have every other drink be a liquid other than water Pending Studies at Discharge: No Stand-Alone Forms: My [facility], Smoking Cessation Medications and DC Order Prescriptions: New tamsulosin 0.4 mg Capsule 0.4 mg PO HS Qty: 30 2RF sodium chloride 1,000 mg Tablet,Soluble 1,000 mg PO DAILY Qty: 15 2RF amoxicillin-pot clavulanate 875-125 mg tablet 1 tab PO BID Qty: 22 0RF Continued nitroglycerin [Nitrostat] 0.4 mg tablet, sublingual 0.4 mg SL Q5M PRN (Reason: chest pain) Qty: 25 5RF Rx Instructions: until response; do not exceed 3 doses per episode fluocinolone acetonide oil 0.01 % drops 5 drp otic (ear) BID PRN (Reason: itching) 7 Days Qty: 20 0RF atorvastatin 20 mg tablet 20 mg PO DAILY Qty: 90 3RF aspirin [Adult Low Dose Aspirin] 81 mg tablet,delayed release (DR/EC) 81 mg PO QPM cholecalciferol (vitamin D3) 1,000 unit capsule 1,000 units PO QAM metoprolol succinate 50 mg tablet extended release 24 hr 50 mg PO QPM Discontinued lisinopril-hydrochlorothiazide 20-12.5 mg tablet 1 tab PO QPM Discharge Orders: Discharge Order (Routine); Ordered 08/21/23 Ordered By: Homar Lucero/Other Patient Handouts: Urinary Tract Infections in Men, Hyponatremia Dc Admission Data Admit Date/Time: 08/20/23 16:01 Attending Provider: Homar Pretty Admit Provider: Homar Pretty Primary Care Provider: Bogdan Poole Other Providers: Mendel Colbert; Ke Hernandez Other Interventions: Discharge Summary Assessment (RN) Last Done: 08/21/23 16:00 Coding Level of Care Code 58213 INP/OBS DISCH >30 MIN Diagnoses Chest pain R07.9 Chest pain type: unspecified Urinary tract infection N39.0 Hematuria presence: without hematuria Urinary tract infection type: site unspecified Acute hyponatremia E87.1 Hypertension I10 Coronary artery disease I25.10
[2023-08-21] MEDS ORDERED: FUROSEMIDE INJ 20 MG/2 ML VIAL IV SCH (17:00)
[2023-08-21] MEDS ORDERED: TAMSULOSIN HCL 0.4 MG CAP PO SCH (21:00)
== END 2023-08-21 16:44 | disposition home or self-care (01) | DRG 313 ==
LOC: ED 14:50 → EDINP 14:50 → SUATTDRO 19:05 → 3W 08-20 14:18

== ENCOUNTER 2023-08-24 01:32 | Observation (INO) ==
[2023-08-24] MEDS ORDERED: ASPIRIN CHEW 324 MG PO STA (01:47)
--- NOTE | 2023-08-24 01:54 | Emergency Department Note ---
History of Present Illness General Chief Complaint: Cardiac Assessment Time Seen by Provider: 08/24/23 01:40 History of Present Illness Provider Complaint: chest pain Onset (ago): day(s) 1 Duration: now resolved Onset: during rest Pain Location: substernal Pain Radiation: none Current Pain Intensity: 0 Quality: + aching Relieved By: + nothing Exacerbated By: + nothing Context: + recent illness and + new medications; no recent surgery, no recent immobilization, no recent travel, no trauma/injury or no history of DVT/PE Associated symptoms: + palpitations; no vomiting, no diaphoresis, no dyspnea, no syncope, no fever, no cough or no leg swelling Patient reports that he was recently admitted to this hospital. is at bedside and states the patient has a history of having atrial fibrillation 22 years ago but has not had any episodes of atrial fibrillation since then. states that his pulse was "out of control" today and states she called Dr. Currie's office who referred him to the emergency department for fear that he was back in atrial fibrillation and might need anticoagulation. Home Medications Medication Instructions Recorded Confirmed Type aspirin 81 mg tablet,delayed 81 mg PO QPM 10/24/20 08/24/23 History release (Adult Low Dose Aspirin) cholecalciferol (vitamin D3) 25 1,000 units PO QAM 10/24/20 08/24/23 History mcg (1,000 unit) capsule nitroglycerin 0.4 mg sublingual 0.4 mg sublingual Q5M PRN chest 04/03/22 08/24/23 Rx tablet (Nitrostat) pain #25 tabs fluocinolone acetonide oil 0.01 % 5 drp otic (ear) BID PRN itching 7 11/30/22 08/24/23 Rx ear drops days #20 mL atorvastatin 20 mg tablet 20 mg PO DAILY #90 tabs 07/09/23 08/24/23 Rx metoprolol succinate 50 mg 50 mg PO QPM 08/18/23 08/24/23 History tablet,extended release 24 hr amoxicillin 875 mg-potassium 1 tab PO BID #22 tabs 08/21/23 08/24/23 Rx clavulanate 125 mg tablet sodium chloride 1,000 mg soluble 1,000 mg PO DAILY #15 tabs 08/21/23 08/24/23 Rx tablet tamsulosin 0.4 mg capsule 0.4 mg PO HS #30 caps 08/21/23 08/24/23 Rx lisinopril 20 mg tablet 20 mg PO DAILY #30 tabs 08/22/23 08/24/23 Rx Allergies Allergy/AdvReac Type Severity Reaction Status Date / Time No Known Drug Allergies Allergy 0 Verified 08/23/23 10:52 Past Med/Surg History Medical History 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 tachycardia 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 Prediabetes Prostate cancer Hyperlipidemia Hypertension Coronary artery disease Surgical History S/P CABG (coronary artery bypass graft) (2000) Post 2 vessel History of prostate surgery H/O bilateral inguinal hernia repair History of colonoscopy Family History Father Cardiac disorder Myocardial infarction Mother Hypertension Stroke Brother Stroke Other Prostate cancer Denies family history of Ovarian cancer Breast cancer Colorectal cancer Social History Smoking Status: Former smoker Age Started Using Tobacco: 20; Age Quit Using Tobacco: 38; packs per day: 2; Second Hand Exposure: No; Do You Dip or Chew Tobacco: No; Hx Alcohol Use: No Hx Substance Use: No Preferred Language: Czech Communication Ability: Effective Visual Impairment: No Limitations Hearing Ability: Use of Hearing Aid 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 Beliefs That Will Affect Care: None marital status: Current Living Situation: Spouse current occupational status: retired Feels Safe at Home: Yes Childhood Exposure to Second-Hand Smoke: Yes Diet: low salt and regular caffeine: Yes Dental Care, Regularly: Yes Physical Activity Frequency: 5-6 Times per Week Physical Activity Frequency Comment: walking, swims, bike rides, weights 45 minutes Seatbelt Use: always Sunscreen Use: Yes Assistive Devices: Glasses Physical Exam Vital Signs Vital Signs - 24 hr 08/24/23 01:33 08/24/23 01:33 08/24/23 01:34 Temperature 36.5 C Temperature Source Temporal Artery Scan Pulse Rate 95 H Pulse Rate [Apical] 95 H Pulse Rate from SpO2 Sensor Pulse Rhythm Respiratory Rate 20 20 Respiratory Effort / Characteristics Non-Labored Spontaneous Non-Labored Spontaneous Respiratory Depth Normal Normal Blood Pressure 147/71 H Blood Pressure [Right Arm] 132/90 Blood Pressure Mean 96 Blood Pressure Mean [Right Arm] 104 Pulse Oximetry 99 98 98 Oxygen Delivery Method Room Air Room Air Room Air Sepsis Recent Fever Within 48 Hours No Sepsis New/Unexplained Change in Mental Status N/A Sepsis Action Taken by Nursing No Action Required 08/24/23 01:47 08/24/23 02:30 08/24/23 02:30 Temperature Temperature Source Pulse Rate 92 H 94 H 94 H Pulse Rate [Apical] Pulse Rate from SpO2 Sensor 89 Pulse Rhythm Regular Respiratory Rate 14 21 Respiratory Effort / Characteristics Respiratory Depth Blood Pressure Blood Pressure [Right Arm] Blood Pressure Mean Blood Pressure Mean [Right Arm] Pulse Oximetry 98 97 Oxygen Delivery Method Room Air Sepsis Recent Fever Within 48 Hours Sepsis New/Unexplained Change in Mental Status Sepsis Action Taken by Nursing 08/24/23 02:31 08/24/23 03:03 08/24/23 03:30 Temperature Temperature Source Pulse Rate 91 H 77 Pulse Rate [Apical] Pulse Rate from SpO2 Sensor 82 92 H 78 Pulse Rhythm Respiratory Rate 19 21 Respiratory Effort / Characteristics Respiratory Depth Blood Pressure 128/93 123/67 Blood Pressure [Right Arm] Blood Pressure Mean 104 85 Blood Pressure Mean [Right Arm] Pulse Oximetry 95 95 97 Oxygen Delivery Method Sepsis Recent Fever Within 48 Hours Sepsis New/Unexplained Change in Mental Status Sepsis Action Taken by Nursing 08/24/23 03:48 08/24/23 04:00 08/24/23 05:00 Temperature Temperature Source Pulse Rate 68 93 H 67 Pulse Rate [Apical] Pulse Rate from SpO2 Sensor 92 H Pulse Rhythm Respiratory Rate 21 21 Respiratory Effort / Characteristics Respiratory Depth Blood Pressure 136/68 Blood Pressure [Right Arm] Blood Pressure Mean 90 Blood Pressure Mean [Right Arm] Pulse Oximetry 96 Oxygen Delivery Method Sepsis Recent Fever Within 48 Hours Sepsis New/Unexplained Change in Mental Status Sepsis Action Taken by Nursing 08/24/23 05:48 Temperature Temperature Source Pulse Rate 94 H Pulse Rate [Apical] Pulse Rate from SpO2 Sensor 85 Pulse Rhythm Respiratory Rate 24 Respiratory Effort / Characteristics Respiratory Depth Blood Pressure 148/74 H Blood Pressure [Right Arm] Blood Pressure Mean 98 Blood Pressure Mean [Right Arm] Pulse Oximetry 96 Oxygen Delivery Method Sepsis Recent Fever Within 48 Hours Sepsis New/Unexplained Change in Mental Status Sepsis Action Taken by Nursing Physical Exam GENERAL: oriented to person, place, and time. appears well-developed and well- nourished. HENT: Exam performed. - Head: Normocephalic and atraumatic. EYES: Conjunctivae and EOM are normal. Right eye exhibits no discharge. Left eye exhibits no discharge. No scleral icterus. NECK: Normal range of motion. Neck supple. No JVD present. CV: Normal rate, irregular rhythm, normal heart sounds and intact distal pulses. There is no peripheral edema. Palpable radial pulses bue. PULM/CHEST: Effort normal and breath sounds normal. No respiratory distress. No stridor. no wheezes. no rales. ABD: The abdomen is soft. There is no tenderness. NEURO: Motor and sensation grossly intact. SKIN: Skin is warm and dry. He is not diaphoretic. PSYCH: normal mood and affect. Behavior is normal. Judgment and thought content normal. Course Course 0140: The patient was evaluated in room A3. A complete history and physical exam was performed Cardiac monitoring: An order was placed for continuous cardiac monitoring. The monitor shows a rate of 100 with atrial fibrilation rhythm interpreted by [place] 0602: Vital signs stable. Patient remains in atrial fibrillation with no RVR. Elevated troponin, patient not reporting any chest pain thought to be due to demand ischemia. CTA of the chest negative for PE. [facility] aware of the patient. Administered Medications Sodium Chloride (Nss) 1,000 mls @ 80 mls/hr IV .[id number] [facility] Stop: 09/23/23 02:59 Last Admin: 08/24/23 03:43 Dose: 80 mls/hr Documented By: JC Discontinued Medications Aspirin (Aspirin Chew 324 Mg) 324 mg PO NOW STA Stop: 08/24/23 01:48 Last Admin: 08/24/23 01:53 Dose: 324 mg Documented By: JC Ioversol (Optiray 320 125ml) 119 ml IV ONCE ONE Stop: 08/24/23 02:50 Last Admin: 08/24/23 02:50 Dose: 119 ml Documented By: Maribel Medical Decision Making Medical Records Attestation: I reviewed the patient's medical records. Medical records narrative: External medical records reviewed. Patient was admitted to this facility on August 18, 2023 and was discharged 3 days ago August 21, 2023. Patient was thought to have musculoskeletal chest pain at that time. He had an echo done which showed the left ventricular systolic function to be low ejection fraction 50 to 55%. There is a basal septum and mid to basal inferior posterior wall is akinetic with increased echogenicity consistent with an old infarct but the other bradley move normally. The right ventricular systolic pressure was elevated. At admission the patient was hyponatremic thought to be likely due to the hydrochlorothiazide the patient's sodium improved and he was discharged with salt tablets. His hydrochlorothiazide was stopped. Patient was also diagnosed with UTI patient had a follow-up visit yesterday on August 23, 2023 and was still to continue his 14-day course of Augmentin. Patient had labs done yesterday to recheck his sodium and his sodium yesterday was 134 and he had a creatinine of 1.22. Laboratory Data 08/24/23 01:50 08/24/23 01:50 Labs: Lab Results 08/24/23 08/24/23 08/24/23 Range/Units 01:50 03:44 Unknown WBC 8.88 (4.8-10.8) K/ul RBC 3.66 L (4.70-6.10) M/uL Hgb 12.3 L (14.0-18.0) g/dl Hct 35.4 L (42.0-52.0) % MCV 96.7 (80.0-100.0) fL MCH 33.6 (25.0-34.0) pg MCHC 34.7 (32.0-36.0) g/dL RDW Std Deviation 43.8 (36.4-46.3) fL RDW Coeff of Renetta 12.2 (11.5-14.5) % Plt Count 248 (130-400) K/uL MPV 9.7 (9.4-12.4) fL Immature Gran % (Auto) 5.5 % Neut % (Auto) 53.3 % Lymph % (Auto) 23.6 % [place] % (Auto) 13.0 % Eos % (Auto) 3.9 % Baso % (Auto) 0.7 % Neut # (Auto) 4.73 (1.40-6.50) K/uL Lymph # (Auto) 2.10 (1.20-3.40) K/uL [place] # (Auto) 1.15 H (0.11-0.59) K/uL Eos # (Auto) 0.35 (0.00-0.50) K/uL Baso # (Auto) 0.06 (0.00-0.20) K/uL Immature Gran # (Auto) 0.49 H (0.01-0.20) K/uL PT 10.9 (9.0-12.0) Seconds INR 1.0 (0.9-1.1) APTT 27 (21-31) Seconds PTT Ratio 1.0 D-Dimer 2890 H* (0-500) ug/L FEU Sodium 134 L (136-145) mmol/L Potassium 4.1 (3.5-5.1) mmol/L Chloride 105 (98-107) mmol/L Carbon Dioxide 22 (21-32) mmol/L Anion Gap 7 (3-11) BUN 36 H (6-23) mg/dl Creatinine 1.18 (0.6-1.4) mg/dl Est Cr Clr Drug Dosing 40.8 ml/min Est GFR ( Amer) 64.8 ml/min Est GFR (Non-Af Amer) 55.9 ml/min BUN/Creatinine Ratio 30.5 H (10-20) Glucose 106 H (70-99(Fasting)) mg/dl Calcium 8.6 (8.6-10.3) mg/dl Magnesium 2.1 (1.7-2.4) mg/dl Troponin I High Sens 52.6 H* 53.7 H* (0-20) pg/ml Lipase 25 (11-82) U/L Lyme Disease IgG Ab Negative (Negative) Lyme Disease IgM Ab Negative (Negative) Imaging Data Chest x-ray: Attestation: I personally reviewed and interpreted this imaging study as follows: My impression: No significant change from the chest x-ray completed on August 18, 2023 CT scan - chest: Radiologist's impression: Chest CTA 08/24/23 02:37 Exam(s): CTA CHEST EXAM: CT Angiography Chest With Intravenous Contrast CLINICAL HISTORY: Reason for exam: ro PE. TECHNIQUE: Axial computed tomographic angiography images of the chest with intravenous contrast. CTDI is 20.97 mGy and DLP is 714.96 mGy-cm. Automated exposure control was utilized for the study. A dose lowering technique was utilized adhering to the principles of ALARA. MIP reconstructed images were created and reviewed. COMPARISON: No relevant prior studies available. FINDINGS: Pulmonary arteries: Unremarkable. No pulmonary embolism. Aorta: No acute findings. No thoracic aortic aneurysm. Lungs: Unremarkable. No mass. No consolidation. Pleural space: Unremarkable. No significant effusion. No pneumothorax. Heart: Unremarkable. No cardiomegaly. No significant pericardial effusion. No evidence of RV dysfunction. Bones/joints: No acute fracture. No dislocation. Soft tissues: Unremarkable. Lymph nodes: Unremarkable. No enlarged lymph nodes. IMPRESSION: Normal chest CTA. No pulmonary embolism. Electronically signed by: Ke Amador MD 08/24/23 05:34 AM ECG Data Attestation: I personally reviewed and interpreted this ECG as follows: Indication: chest pain Rate (beats per minute): 103 Rhythm: atrial fibrillation Findings: + RBBB; no ST depression or no ST elevation Comparison ECG Date: from (August 18, 2023 and November 28, 2022) Change: the following changes noted (The atrial fibrillation that is present in today's EKG is new compared to the previous 2 EKGs) Additional Comments: QRS 158 QTc 505. MDM Narrative 0140: The patient was evaluated in room A3. A complete history and physical exam was performed Cardiac monitoring: An order was placed for continuous cardiac monitoring. The monitor shows a rate of 100 with atrial fibrilation rhythm interpreted by me 0602: Vital signs stable. Patient remains in atrial fibrillation with no RVR. Elevated troponin, patient not reporting any chest pain thought to be due to demand ischemia. CTA of the chest negative for PE. Patient be admitted to [facility] hospitalist team Dr. Mcintyre aware of the patient. Impression & Plan Atrial fibrillation Discharge Plan Visit Data Chief Complaint: Cardiac Assessment ED Provider: Anatoliy Phillip Discharge Problem: Atrial fibrillation Patient Disposition: Admitted As Inpatient Forms Stand Alone Forms: My [facility] Prescriptions Prescriptions: No Action nitroglycerin [Nitrostat] 0.4 mg tablet, sublingual 0.4 mg SL Q5M PRN (Reason: chest pain) Qty: 25 5RF Rx Instructions: until response; do not exceed 3 doses per episode lisinopril 20 mg tablet 20 mg PO DAILY Qty: 30 5RF fluocinolone acetonide oil 0.01 % drops 5 drp otic (ear) BID PRN (Reason: itching) 7 Days Qty: 20 0RF atorvastatin 20 mg tablet 20 mg PO DAILY Qty: 90 3RF aspirin [Adult Low Dose Aspirin] 81 mg tablet,delayed release (DR/EC) 81 mg PO QPM cholecalciferol (vitamin D3) 1,000 unit capsule 1,000 units PO QAM metoprolol succinate 50 mg tablet extended release 24 hr 50 mg PO QPM tamsulosin 0.4 mg Capsule 0.4 mg PO HS Qty: 30 2RF sodium chloride 1,000 mg Tablet,Soluble 1,000 mg PO DAILY Qty: 15 2RF amoxicillin-pot clavulanate 875-125 mg tablet 1 tab PO BID Qty: 22 0RF Referrals Referrals: Bogdan Poole MD [Primary Care Provider] - Discharge Problem: Atrial fibrillation Qualifiers: Atrial fibrillation type: unspecified Qualified Code(s): I48.91 - Unspecified atrial fibrillation
[2023-08-24 02:07] LABS: Hematocrit (blood only) 35.4 % (42.0-52.0); Hemoglobin 12.3 g/dl (14.0-18.0); Mean Corpuscular Hemoglobin 33.6 pg (25.0-34.0); Mean Corpuscular Hgb Conc 34.7 g/dL (32.0-36.0); Mean Corpuscular Volume 96.7 fL (80.0-100.0); Mean Platelet Volume 9.7 fL (9.4-12.4); Platelet Count 248 K/uL (130-400); RDW Coefficient of Variation 12.2 % (11.5-14.5); RDW Standard Deviation 43.8 fL (36.4-46.3); Red Blood Count 3.66 M/uL (4.70-6.10); White Blood Count 8.88 K/ul (4.8-10.8)
[2023-08-24 02:25] LABS: Basophils # (auto) 0.06 K/uL (0.00-0.20); Basophils % (auto) 0.7 %; Eosinophils # (auto) 0.35 K/uL (0.00-0.50); Eosinophils % (auto) 3.9 %; Immature Granulocytes # (auto) 0.49 K/uL (0.01-0.20); Immature Granulocytes % (auto) 5.5 %; Lymphocytes % (auto) 23.6 %; Monocytes # (auto) 1.15 K/uL (0.11-0.59); Neutrophils # (auto) 4.73 K/uL (1.40-6.50); Neutrophils % (auto) 53.3 %
[2023-08-24 02:26] LABS: BUN Creatinine Ratio 30.5 (10-20); Calcium 8.6 mg/dl (8.6-10.3); Creatinine Clr Calc Pharmacy 40.8 ml/min; Est GFR (African American) 64.8 ml/min; Est GFR (Non-African American) 55.9 ml/min; Magnesium 2.1 mg/dl (1.7-2.4); Potassium 4.1 mmol/L (3.5-5.1)
[2023-08-24 02:35] LABS: Partial Thromboplastin Time 27 Seconds (21-31); Prothrombin Time 10.9 Seconds (9.0-12.0)
[2023-08-24 02:36] LABS: Troponin I High Sensitivity 52.6 pg/ml (0-20)
[2023-08-24 02:37] LABS: D Dimer 2890 ug/L FEU (0-500)
[2023-08-24] MEDS ORDERED: OPTIRAY 320 125ml IV ONE (02:49)
[2023-08-24] MEDS ORDERED: SODIUM CHLORIDE 0.9% 1,000 ML IV SCH (03:00)
[2023-08-24 03:37] LABS: Lyme Ab IgG w/WB Rflx Negative (Negative); Lyme Ab IgM w/WB Rflx Negative (Negative)
--- NOTE | 2023-08-24 05:36 | CT Scan Report ---
Exam(s): CTA CHEST EXAM: CT Angiography Chest With Intravenous Contrast CLINICAL HISTORY: Reason for exam: ro PE. TECHNIQUE: Axial computed tomographic angiography images of the chest with intravenous contrast. CTDI is 20.97 mGy and DLP is 714.96 mGy-cm. Automated exposure control was utilized for the study. A dose lowering technique was utilized adhering to the principles of ALARA. MIP reconstructed images were created and reviewed. COMPARISON: No relevant prior studies available. FINDINGS: Pulmonary arteries: Unremarkable. No pulmonary embolism. Aorta: No acute findings. No thoracic aortic aneurysm. Lungs: Unremarkable. No mass. No consolidation. Pleural space: Unremarkable. No significant effusion. No pneumothorax. Heart: Unremarkable. No cardiomegaly. No significant pericardial effusion. No evidence of RV dysfunction. Bones/joints: No acute fracture. No dislocation. Soft tissues: Unremarkable. Lymph nodes: Unremarkable. No enlarged lymph nodes. IMPRESSION: Normal chest CTA. No pulmonary embolism. Electronically signed by: Ke Amador MD 08/24/23 05:34 AM
--- NOTE | 2023-08-24 05:53 | History & Physical Report ---
Date of Service August 24, 2023 Assessment & Plan (1) Atrial fibrillation with RVR: Plan: 87 year old male admitted for Atrial fibrillation with RVR -Per , one other time after surgery he had high heart rate. -K 4.1, Mg 2.1. -EKG w/ A. fib w/ RVR -CTA negative for any PE. -May be from UTI/infection, however patient has already had few days treatment. -HR usually in 40's-50's tachybrady syndrome. Metoprolol adjustment may be tricky due to bradycardia. -CHADSVASC2 score 4 (>75, HTN, Hx DM), on Lovenox 40mg SQ while inpatient. -Consulted cardiology. -Monitor daily renal function and Mg. -Daily EKG. -Monitor rhythm on telemetry. (2) Urinary tract infection: Plan: -From previous admission. -Continue Augmentin and Flomax. (3) Acute hyponatremia: Plan: -From previous admission, Na 134, continue daily salt tab. (4) Coronary artery disease: Plan: -Noted. (5) Hypertension: Plan: -Continue home lisinopril and metoprolol. HCTZ was removed on prior admission due to hyponatremic effects. (6) Hyperlipidemia: Plan: -Continue home statin. (7) Prostate cancer: Plan: -Noted. Continue Flomax. (8) Prediabetes: Plan: -ACHS checks. (9) S/P CABG (coronary artery bypass graft): Plan: -Noted Plan F/E/N/GI: Heart Healthy DVT Px: Lovenox 40mg daily Code status: DNR/DNI. Dispo: med/tele for cardiac monitoring. History of Present Illness Chief Complaint: Atrial fibrillation with RVR Primary Care Provider: Bogdan Poole MD Olvin is an 87 year old male w/ PmHx tachybrady syndrome, CAD s/p CABG 2000, HLD, HTN, prediabetes, prostate cancer coming into the ER due to erratic heart rates earlier in the day. Patient is accompanied by at the bedside. He had been in good health post discharge until they went to their primary care office for a transition of care visit from the last discharge. At the office they noticed his heart rate was 116 and then recheck showed 82. Usually his heart rate is 40's-50's. His heart rate continued to be sporadic throughout the day worrying the patient and his , however the patient was not experiencing any symptoms. 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 Patient denies any fevers, chills, new chest pain, shortness of breath, nausea, d iaphoresis. In the ER, Na 134, K 4.1, Mg 2.1, trop 53.7, lyme negative, D-dimer 2890. CTA of the chest did not show any evidence for PE or any acute process. Patient's HR oscillated in the room mostly in the 80's to 110's with jumps to 130's and 155 at the max. The stated this is the highest she's ever seen for his HR. Allergies Allergy/AdvReac Type Severity Reaction Status Date / Time No Known Drug Allergies Allergy 0 Verified 08/23/23 10:52 Home Medications Medication Instructions Recorded Confirmed Type aspirin 81 mg tablet,delayed 81 mg PO QPM 10/24/20 08/24/23 History release (Adult Low Dose Aspirin) cholecalciferol (vitamin D3) 25 1,000 units PO QAM 10/24/20 08/24/23 History mcg (1,000 unit) capsule nitroglycerin 0.4 mg sublingual 0.4 mg sublingual Q5M PRN chest 04/03/22 08/24/23 Rx tablet (Nitrostat) pain #25 tabs fluocinolone acetonide oil 0.01 % 5 drp otic (ear) BID PRN itching 7 11/30/22 08/24/23 Rx ear drops days #20 mL atorvastatin 20 mg tablet 20 mg PO DAILY #90 tabs 07/09/23 08/24/23 Rx metoprolol succinate 50 mg 50 mg PO QPM 08/18/23 08/24/23 History tablet,extended release 24 hr amoxicillin 875 mg-potassium 1 tab PO BID #22 tabs 08/21/23 08/24/23 Rx clavulanate 125 mg tablet sodium chloride 1,000 mg soluble 1,000 mg PO DAILY #15 tabs 08/21/23 08/24/23 Rx tablet tamsulosin 0.4 mg capsule 0.4 mg PO HS #30 caps 08/21/23 08/24/23 Rx lisinopril 20 mg tablet 20 mg PO DAILY #30 tabs 08/22/23 08/24/23 Rx Past Med/Surg History Medical History Ventricular tachycardia seen on gambling monitor Prediabetes Prostate cancer Hyperlipidemia Hypertension Coronary artery disease Surgical History S/P CABG (coronary artery bypass graft) (2000) Juli 2 vessel History of prostate surgery H/O bilateral inguinal hernia repair History of colonoscopy Family History Father Cardiac disorder Myocardial infarction Mother Hypertension Stroke Brother Stroke Other Prostate cancer Denies family history of Ovarian cancer Breast cancer Colorectal cancer Social History Smoking Status: Former smoker Age Started Using Tobacco: 20; Age Quit Using Tobacco: 38; packs per day: 2; Second Hand Exposure: No; Do You Dip or Chew Tobacco: No; Hx Alcohol Use: No Hx Substance Use: No Preferred Language: Chadian Communication Ability: Effective Visual Impairment: No Limitations Hearing Ability: Use of Hearing Aid Morgue Attendant Required: No Beliefs That Will Affect Care: None marital status: Current Living Situation: Spouse current occupational status: retired Other Information That Helps Us Care for You: No Feels Safe at Home: Yes Safety Concerns: Feels Safe At This Time Childhood Exposure to Second-Hand Smoke: Yes Diet: low salt and regular caffeine: Yes Dental Care, Regularly: Yes Physical Activity Frequency: 5-6 Times per Week Physical Activity Frequency Comment: walking, swims, bike rides, weights 45 minutes Seatbelt Use: always Sunscreen Use: Yes Assistive Devices: Denture - Upper, Denture - Lower, Glasses and Hearing Aid - Bilateral Review of Systems Review of Systems: As per HPI. Physical Exam Constitutional: WD/WN, vitals as above ENMT: external ear and nose normal, oropharynx normal Respiratory: normal respiratory effort, lungs clear to auscultation Cardiovascular: Rate/Rhythm: + irregularly irregular Heart Sounds: normal S1 and normal S2 No peripheral edema. Chest (Breasts): normal inspection/palpation of breasts Gastrointestinal (Abdomen): normal bowel sounds, soft, nontender, no hepatosplenomegaly Psychiatric: A+Ox3, euthymic affect Results & Data Results & Data Vital Signs (Past 12 Hours) Vital Signs Temp Pulse Pulse Resp BP BP Pulse Ox 08/24/23 03:48 68 08/24/23 02:30 94 H 08/24/23 01:47 92 H 14 98 08/24/23 01:34 36.5 C 95 H 20 147/71 H 98 08/24/23 01:33 95 H 20 132/90 98 08/24/23 01:33 99 O2 Del Method 08/24/23 03:48 08/24/23 02:30 08/24/23 01:47 Room Air 08/24/23 01:34 Room Air 08/24/23 01:33 Room Air 08/24/23 01:33 Room Air Code Status & VTE Plan VTE Prophylaxis Plan VTE Prophylaxis will be ordered: Yes Supervising Physician Co-Signing Physician Notes Attending addendum: I have physically seen this patient, have supervised the medical residents activities, and agree with the H&P unless as otherwise noted. Assessment and Plan: Atrial fibrillation with RVR/CAD/status post CABG/hypertension/tachybradycardia syndrome history- The patient will be admitted to telemetry for serial cardiac enzymes, serial EKG's, cardiac rhythm monitoring and a 2-D echocardiogram with Dopplers. His very regularly follows his vital signs, and notes that this is the first time he has had increased irregular heart rate Initial troponin 53.7, likely secondary to increased heart rate Potassium 4.1, and magnesium 2.1 May be secondary to hypermetabolic state associated with urinary tract infection Continue metoprolol and lisinopril Appears mildly dry Rehydrate with IV fluids as noted Consult cardiology Urinary tract infection/prostate cancer history- Continue Augmentin and tamsulosin Prediabetes- Placed on Accu-Cheks with NovoLog SSI Resident Activity Tracking Resident Involvement: Resident Care Provided Care Provided: Adult Hospital Medicine (2) Urinary tract infection Hematuria presence: without hematuria Urinary tract infection type: site unspecified Qualified Code(s): N39.0 - Urinary tract infection, site not specified
--- NOTE | 2023-08-24 07:10 | Hospitalist Progress Note ---
Date of Service August 24, 2023 Assessment & Plan (1) Atrial fibrillation with RVR: (2) Urinary tract infection: (3) Acute hyponatremia: (4) Coronary artery disease: (5) Hypertension: (6) Hyperlipidemia: (7) Prostate cancer: (8) Prediabetes: (9) S/P CABG (coronary artery bypass graft): Plan 87 year old male admitted for Atrial fibrillation with RVR Atrial fibrillation with RVR: -Has had recent home monitor placed with no records of a fib. HR ranged as high as 110. -Consulted cardiology. -Metoprolol succinate 50 mg in morning today and will increase to 100 mg tomorrow. -Monitor rhythm, can consider cardioversion in the future. -Start eliquis 5mgs bid. -HR better controlled through the day with metoprolol. Urinary tract infection: -From previous admission - No new symptoms -Continue Flomax. -Augmentin switch to Keflex Acute hyponatremia: -From previous admission, likely from HCTZ. Na 134, continue daily salt tab. -Monitor CAD s/p CABG 2000 HTN -Continue home lisinopril and metoprolol. - HCTZ was removed on prior admission due to hyponatremic effects. HLD -Continue home statin. Prostate cancer: - LUTS -Noted. Continue Flomax. Prediabetes: -ACHS checks. Plan F/E/N/GI: Heart Healthy DVT Px: Eliqus Code status: DNR/DNI. Dispo: med/tele for cardiac monitoring. Supervising Physician Co-Signing Physician Notes Attending Physician Supervision Note: I independently interviewed and examined the patient and verified the miller history and physical, reviewed labs and image studies and agree with findings and care plan noted above. Peri Bah is an 87 year old male w/ PmHx tachybrady syndrome, CAD s/p CABG 2000, HLD, HTN, prediabetes, prostate cancer coming into the ER due to erratic heart rates earlier in the day. Patient is accompanied by at the bedside. He had been in good health post discharge until they went to their primary care office for a transition of care visit from the last discharge. At the office they noticed his heart rate was 116 and then recheck showed 82. Usually his heart rate is 40's-50's. The was also concerned that his lisinopril was stopped when his hctz/losartan combined pill was discontinued due to hyponatremia, so the pcp prescribed lisinopril 20 mg and advised his only to give if systolic BP is over 120. His heart rate continued to be sporadic throughout the day worrying the patient and his , however the patient was not experiencing any symptoms. The remembers his systolic BP was under 120, as she did not give him his lisinopril but does not recall the exact number. They called the cardiology office to speak with the continuing education instructor team and they were recommended to go to the ER for evaluation of A fib with RVR. Patient denies any fevers, chills, new chest pain, shortness of breath, nausea, diaphoresis. Review of Systems Review of Systems: Per HPI Physical Exam Constitutional: WD/WN, vitals as above Respiratory: normal respiratory effort, lungs clear to auscultation Cardiovascular: RRR, no murmur, no edema Psychiatric: A+Ox3, euthymic affect Results & Data Results & Data Vital Signs (Past 12 Hours) Vital Signs Temp Pulse Pulse Resp BP BP Pulse Ox 08/24/23 05:48 94 H 24 148/74 H 96 08/24/23 05:00 67 21 08/24/23 04:00 93 H 21 136/68 96 08/24/23 03:48 68 08/24/23 03:30 77 21 123/67 97 08/24/23 03:03 95 08/24/23 02:31 91 H 19 128/93 95 08/24/23 02:30 94 H 21 97 08/24/23 02:30 94 H 08/24/23 01:47 92 H 14 98 08/24/23 01:34 36.5 C 95 H 20 147/71 H 98 08/24/23 01:33 95 H 20 132/90 98 08/24/23 01:33 99 O2 Del Method 08/24/23 05:48 08/24/23 05:00 08/24/23 04:00 08/24/23 03:48 08/24/23 03:30 08/24/23 03:03 08/24/23 02:31 08/24/23 02:30 08/24/23 02:30 08/24/23 01:47 Room Air 08/24/23 01:34 Room Air 08/24/23 01:33 Room Air 08/24/23 01:33 Room Air Resident Activity Tracking Resident Involvement: Resident Care Provided Care Provided: Adult Hospital Medicine and Adult ED (2) Urinary tract infection Hematuria presence: without hematuria Urinary tract infection type: site unspecified Qualified Code(s): N39.0 - Urinary tract infection, site not specified (4) Coronary artery disease Associated angina: without angina Coronary Disease-Associated Artery/Lesion type: unspecified vessel or lesion type [place] vs. transplanted heart: [place] heart Qualified Code(s): I25.10 - Atherosclerotic heart disease of [place] coronary artery without angina pectoris (5) Hypertension Hypertension type: unspecified Qualified Code(s): I10 - Essential (primary) hypertension (6) Hyperlipidemia Hyperlipidemia type: unspecified Qualified Code(s): E78.5 - Hyperlipidemia, unspecified
--- NOTE | 2023-08-24 07:14 | XRay Report ---
SINGLE VIEW CHEST CLINICAL HISTORY: Atypical chest pain. FINDINGS: An AP, portable, upright chest radiograph is compared to study dated 08/18/2023. The patient is status post midline sternotomy. The heart is enlarged noting atherosclerotic calcification of the thoracic aorta. There is mild pulmonary vascular congestion There is bibasilar scarring/atelectasis. No airspace consolidation or large pleural effusions identified. No pneumothorax is seen. The skeleta l structures are osteopenic. The bony thorax is grossly intact. Arthritic change is seen in the shoul ders. IMPRESSION: Cardiomegaly with mild pulmonary vascular congestion. ACT 112: Negative or not required by law. Electronically signed by: Jan Leal M.D. 08/24/2023 7:11 AM
[2023-08-24] MEDS ORDERED: CARBOHYDRATES FOR HYPOGLYCEMIA PO PRN (07:57)
[2023-08-24] MEDS ORDERED: GLUCAGON FOR INJ 1 MG VIAL SQ PRN (07:57)
[2023-08-24] MEDS ORDERED: GLUCOSE 40% GEL 15 GM TUBE PO PRN (07:57)
[2023-08-24] MEDS ORDERED: POLYETHYLENE (MIRALAX) 17 GM PACK PO PRN (07:57)
[2023-08-24] MEDS ORDERED: ACETAMINOPHEN 325 MG TAB PO PRN (07:57)
[2023-08-24] MEDS ORDERED: GLUCOSE 10 TAB/TUBE PO PRN (07:57)
[2023-08-24] MEDS ORDERED: ONDANSETRON INJ 2 MG/ML 2 ML VIAL IV PRN (07:57)
[2023-08-24] MEDS ORDERED: DEXTROSE 50% 50 ML SYRINGE IV PRN (07:57)
--- NOTE | 2023-08-24 08:48 | Cardiology Consultation ---
Date of Consultation August 24, 2023 Assessment & Plan (1) Atrial fibrillation: (2) Chest pain: (3) Coronary artery disease: Plan 1. Atrial fibrillation: Presumably new onset, his checks his rhythm frequently and although he is asymptomatic this probably started yesterday. Still with asymptomatic atrial fibrillation of uncertain duration (although likely brief) I believe I would pursue rate control and anticoagulation, he may convert on his own. If not we can cardiovert in the future. He had a recent echo so would not repeat that. I would add rate control with morning metoprolol succinate and an increase in dose, we would like this to be more effective durin g the day than at night. 2. Chest pain: This was very vague and not clearly anginal, possibly related to the rhythm, with essentially negative enzymes I do not think we have to pursue this. 3. Coronary disease: He has known coronary artery disease. His cardiac enzymes (high-sensitivity troponin) were minimally elevated on presentation with no particular trend. This is consistent with low-grade demand ischemia and not myocardial infarction. I would not pursue further at this time. History of Present Illness Reason for Consultation: Atrial fibrillation Attending Physician: Lachelle Melendez MD History of Present Illness This is an 87-year-old male followed by Dr. Currie in our office. He has a history of myocardial infarction 2000 followed by bypass surgery at that time. 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 Jones for possible pacemaker implantation however it was felt not necessary as yet. It sounds as though he felt very poorly on 100 mg daily of metoprolol in the pa st therefore it has been reduced to 50 mg daily. He also has a history of premature ventricular beats and periods of sinus bradycardia on monitoring with first-degree AV block but not high-grade AV block. An echocardiogram done August 19, 2023 showed low normal left ventricular systolic function with ejection fraction of 50 to 55% and normal right ventricular size and function. He presented to the emergency room with complaints of chest discomfort and was found to be in atrial fibrillation with a rapid heart rate. Electrocardiography done August 24, 2023 at 0142 shows atrial fibrillation with a heart rate of 103 bpm, a right bundle branch block pattern with left anterior fascicular block. QRS duration is 158 ms. His symptoms of chest discomfort are quite vague and are not necessarily anginal. He has been asymptomatic since admission. Allergies Allergy/AdvReac Type Severity Reaction Status Date / Time No Known Drug Allergies Allergy 0 Verified 08/23/23 10:52 Home Medications Medication Instructions Recorded Confirmed Type aspirin 81 mg tablet,delayed 81 mg PO QPM 10/24/20 08/24/23 History release (Adult Low Dose Aspirin) cholecalciferol (vitamin D3) 25 1,000 units PO QAM 10/24/20 08/24/23 History mcg (1,000 unit) capsule nitroglycerin 0.4 mg sublingual 0.4 mg sublingual Q5M PRN chest 04/03/22 08/24/23 Rx tablet (Nitrostat) pain #25 tabs fluocinolone acetonide oil 0.01 % 5 drp otic (ear) BID PRN itching 7 11/30/22 Rx ear drops days #20 mL atorvastatin 20 mg tablet 20 mg PO DAILY #90 tabs 07/09/23 08/24/23 Rx metoprolol succinate 50 mg 50 mg PO QPM 08/18/23 08/24/23 History tablet,extended release 24 hr amoxicillin 875 mg-potassium 1 tab PO BID #22 tabs 08/21/23 08/24/23 Rx clavulanate 125 mg tablet sodium chloride 1,000 mg soluble 1,000 mg PO DAILY #15 tabs 08/21/23 08/24/23 Rx tablet tamsulosin 0.4 mg capsule 0.4 mg PO HS #30 caps 08/21/23 08/24/23 Rx lisinopril 20 mg tablet 20 mg PO DAILY #30 tabs 08/22/23 08/24/23 Rx Patient History Medical History Ventricular tachycardia seen on senior ui developer Prediabetes Prostate cancer Hyperlipidemia Hypertension Coronary artery disease Surgical History S/P CABG (coronary artery bypass graft) (2000) [place] 2 vessel History of prostate surgery H/O bilateral inguinal hernia repair History of colonoscopy Family History Father Cardiac disorder Myocardial infarction Mother Hypertension Stroke Brother Stroke Other Prostate cancer Denies family history of Ovarian cancer Breast cancer Colorectal cancer Social History Smoking Status: Former smoker Age Started Using Tobacco: 20; Age Quit Using Tobacco: 38; packs per day: 2; Second Hand Exposure: No; Do You Dip or Chew Tobacco: No; Hx Alcohol Use: No Hx Substance Use: No Preferred Language: Persian Communication Ability: Effective Visual Impairment: No Limitations Hearing Ability: Use of Hearing Aid Assistant Import Manager Required: No Beliefs That Will Affect Care: None marital status: Current Living Situation: Spouse current occupational status: retired Other Information That Helps Us Care for You: No Feels Safe at Home: Yes Safety Concerns: Feels Safe At This Time Childhood Exposure to Second-Hand Smoke: Yes Diet: low salt and regular caffeine: Yes Dental Care, Regularly: Yes Physical Activity Frequency: 5-6 Times per Week Physical Activity Frequency Comment: walking, swims, bike rides, weights 45 minutes Seatbelt Use: always Sunscreen Use: Yes Assistive Devices: Denture - Upper, Denture - Lower, Glasses and Hearing Aid - Bilateral Review of Systems Review of Systems: All systems reviewed & are unremarkable except as noted in HPI & below Physical Exam Physical Exam: Constitutional: Alert, cooperative and in no distress. HEENT: Unremarkable Neck: No jugular venous distention, carotid pulses are irregular but otherwise normal and equal bilaterally without bruits. Pulmonary: Clear to auscultation bilaterally. Cardiac: Irregular rhythm with no murmur, gallop or rub. Abdomen: Soft, nontender with normal bowel sounds. Extremities: No edema. Distal pulses intact. Neurologic: No focal findings. Gait is steady. Skin: No rash, ecchymoses or petechiae. Results & Data Vital Signs (Past 12 Hours) Vital Signs Temp Pulse Pulse Resp BP BP Pulse Ox 08/24/23 08:35 08/24/23 08:00 36.5 C 96 H 20 156/72 H 97 08/24/23 07:42 65 08/24/23 05:48 94 H 24 148/74 H 96 08/24/23 05:00 67 21 08/24/23 04:00 93 H 21 136/68 96 08/24/23 03:48 68 08/24/23 03:30 77 21 123/67 97 08/24/23 03:03 95 08/24/23 02:31 91 H 19 128/93 95 08/24/23 02:30 94 H 21 97 08/24/23 02:30 94 H 08/24/23 01:47 92 H 14 98 08/24/23 01:34 36.5 C 95 H 20 147/71 H 98 08/24/23 01:33 95 H 20 132/90 98 08/24/23 01:33 99 Pulse Ox O2 Del Method O2 Del Method 08/24/23 08:35 98 Room Air 08/24/23 08:00 Room Air 08/24/23 07:42 08/24/23 05:48 08/24/23 05:00 08/24/23 04:00 08/24/23 03:48 08/24/23 03:30 08/24/23 03:03 08/24/23 02:31 08/24/23 02:30 08/24/23 02:30 08/24/23 01:47 Room Air 08/24/23 01:34 Room Air 08/24/23 01:33 Room Air 08/24/23 01:33 Room Air Laboratory Results Cardiac Enzymes 08/24/23 08/24/23 Range/Units 01:50 03:44 Troponin I High Sens 52.6 H* 53.7 H* (0-20) pg/ml Coagulation 08/24/23 Range/Units 01:50 PT 10.9 (9.0-12.0) Seconds APTT 27 (21-31) Seconds CBC 08/24/23 Range/Units 01:50 WBC 8.88 (4.8-10.8) K/ul RBC 3.66 L (4.70-6.10) M/uL Hgb 12.3 L (14.0-18.0) g/dl Hct 35.4 L (42.0-52.0) % Plt Count 248 (130-400) K/uL Neut # (Auto) 4.73 (1.40-6.50) K/uL Lymph # (Auto) 2.10 (1.20-3.40) K/uL Todd # (Auto) 1.15 H (0.11-0.59) K/uL Eos # (Auto) 0.35 (0.00-0.50) K/uL Baso # (Auto) 0.06 (0.00-0.20) K/uL Comprehensive Metabolic Panel 08/24/23 Range/Units 01:50 Sodium 134 L (136-145) mmol/L Potassium 4.1 (3.5-5.1) mmol/L Chloride 105 (98-107) mmol/L Carbon Dioxide 22 (21-32) mmol/L BUN 36 H (6-23) mg/dl Creatinine 1.18 (0.6-1.4) mg/dl Glucose 106 H (70-99(Fasting)) mg/dl Calcium 8.6 (8.6-10.3) mg/dl Intake and Output 08/23/23 08/24/23 08/24/23 22:59 06:59 14:59 Other: Weight 63 kg 63 kg Weight Measurement Method Chair Scale Built in [facility] Patient Weight 08/25/23 06:59 Weight 63 kg Diagnostic Findings Telemetry: Atrial fibrillation, moderately rapid heart rate. Premature ventricular beats. PG Care Time/CCT Total # of Minutes Spent Total Time Spent with Patient: Total time spent is greater than 50% in coordination of care (as documented) at patient's floor/unit and/or counseling patient: Coding Level of Care Code 26140 INT INP/OBS CARE 3/75MIN Diagnoses Atrial fibrillation I48.91 Atrial fibrillation type: unspecified Chest pain R07.9 Chest pain type: unspecified Coronary artery disease involving [place] heart without angina pectoris, unspecified vessel or lesion type I25.10 Coronary Disease-Associated Artery/Lesion type: unspecified vessel or lesion type [place] vs. transplanted heart: [place] heart Associated angina: without angina (1) Atrial fibrillation Atrial fibrillation type: unspecified Qualified Code(s): I48.91 - Unspecified atrial fibrillation (2) Chest pain Chest pain type: unspecified Qualified Code(s): R07.9 - Chest pain, unspecified (3) Coronary artery disease Coronary Disease-Associated Artery/Lesion type: unspecified vessel or lesion type [place] vs. transplanted heart: [place] heart Associated angina: without angina Qualified Code(s): I25.10 - Atherosclerotic heart disease of [place] coronary artery without angina pectoris
[2023-08-24] MEDS: lisinopril 20 MG TAB PO SCH ×3 (08:55→20:33)
[2023-08-24] MEDS: AMOXICILLIN/CLAVULANATE 875 MG TAB PO SCH ×2 (08:55→09:17)
[2023-08-24] MEDS: SODIUM CHLORIDE 1 GM TABLET PO SCH ×3 (08:55→20:33)
[2023-08-24] MEDS: ATORVASTATIN 20 MG TAB PO SCH ×3 (08:55→20:34)
[2023-08-24] MEDS ORDERED: METOPROLOL SUCC 50MG EXT REL TAB PO STA (08:58)
[2023-08-24] MEDS ORDERED: ENOXAPARIN INJ 40 MG/0.4 ML SYR SQ SCH (09:00)
[2023-08-24] MEDS: APIXABAN 5 MG TABLET PO SCH ×2 (09:31→20:34)
[2023-08-24] MEDS: cephALEXin 250 MG CAP PO SCH ×2 (20:33→20:48)
[2023-08-24] MEDS: ASPIRIN 81 MG ECTAB PO SCH (20:34)
[2023-08-24] MEDS: TAMSULOSIN HCL 0.4 MG CAP PO SCH (20:34)
[2023-08-24] MEDS ORDERED: METOPROLOL SUCC 50MG EXT REL TAB PO SCH (21:00)
--- NOTE | 2023-08-25 00:49 | Billing Data ---
Date of Service August 25, 2023 Coding Level of Care Code 72955 INT INP/OBS CARE
[2023-08-25 04:31] LABS: Hemoglobin 11.6 g/dl (14.0-18.0); Mean Corpuscular Hgb Conc 34.1 g/dL (32.0-36.0); Mean Corpuscular Volume 96.9 fL (80.0-100.0); Mean Platelet Volume 9.6 fL (9.4-12.4); Platelet Count 277 K/uL (130-400); RDW Coefficient of Variation 12.4 % (11.5-14.5); Red Blood Count 3.51 M/uL (4.70-6.10); White Blood Count 9.71 K/ul (4.8-10.8)
[2023-08-25 04:49] LABS: Basophils # (auto) 0.07 K/uL (0.00-0.20); Basophils % (auto) 0.7 %; Eosinophils # (auto) 0.42 K/uL (0.00-0.50); Eosinophils % (auto) 4.3 %; Immature Granulocytes % (auto) 5.1 %; Lymphocytes % (auto) 21.6 %; Monocytes # (auto) 0.94 K/uL (0.11-0.59); Monocytes % (auto) 9.7 %; Neutrophils # (auto) 5.68 K/uL (1.40-6.50); Neutrophils % (auto) 58.6 %; RBC Morphology Unremarkable
[2023-08-25 04:51] LABS: Albumin Level 3.3 gm/dl (3.4-5.0); BUN Creatinine Ratio 22.3 (10-20); Calcium 8.4 mg/dl (8.6-10.3); Est GFR (African American) 57.7 ml/min; Est GFR (Non-African American) 49.8 ml/min; Magnesium 1.9 mg/dl (1.7-2.4); Phosphorus 3.6 mg/dl (2.5-4.9); Potassium 4.3 mmol/L (3.5-5.1)
--- NOTE | 2023-08-25 08:56 | Hospitalist Progress Note ---
Date of Service August 25, 2023 Assessment & Plan (1) Atrial fibrillation with RVR: (2) Urinary tract infection: (3) Acute hyponatremia: (4) Coronary artery disease: (5) Hypertension: (6) Hyperlipidemia: (7) Prostate cancer: (8) Prediabetes: (9) S/P CABG (coronary artery bypass graft): Plan 87 year old male admitted for Atrial fibrillation with RVR Atrial fibrillation with RVR: -HR changing from 100-125s, a flutter episodes overnight -HR usually in 40's-50's tachybrady syndrome -Monitor rhythm on telemetry. -Consulted cardiology. - Cardiovert tomorrow morning - NPO am - considering pacemaker in near future due to hx of bradycardia -Metoprolol succinate 100 mg am - hold tomorrow dose -Eliquis 5 mg BID Urinary tract infection: -From previous admission - No new symptoms -Continue Flomax. -Augmentin switch to Keflex hyponatremia -resolved -From previous admission, Na 134, continue daily salt tab. his hctz d/carlee last admission. -Na: 136 -Monitor BMP CAD s/p CABG 2000 HTN -Continue home lisinopril - HCTZ was removed on prior admission due to hyponatremic effects. HLD -Continue home statin. Prostate cancer: - LUTS -Noted. Continue Flomax. Prediabetes: -ACHS checks. Plan F/E/N/GI: Heart Healthy DVT Px: Eliquis Code status: DNR/DNI. Dispo: med/tele for cardiac monitoring. Admission and Anticipated Discharge Date Admission Date: August 24, 2023 Supervising Physician Co-Signing Physician Notes Attending Physician Supervision Note: I independently interviewed and examined the patient and verified the miller history and physical, reviewed labs and image studies and agree with findings and care plan noted above. Peri Bah is an 87 year old male w/ PmHx tachybrady syndrome, CAD s/p CABG 2000, HLD, HTN, prediabetes, prostate cancer due to new onset AFib. Patient seen this AM, found ambulating in NAD. HR stills 90s. Episodes of HR on 120s, and A flutter. Patient still asymptomatic. Patient denies any fevers, chills, new chest pain, shortness of breath, nausea, diaphoresis. Review of Systems Review of Systems: As per HPI. Physical Exam Constitutional: WD/WN, vitals as above Respiratory: normal respiratory effort, lungs clear to auscultation Cardiovascular: Rate/Rhythm: + irregularly irregular Gastrointestinal (Abdomen): normal bowel sounds, soft, nontender, no hepatosplenomegaly Results & Data Results & Data Vital Signs (Past 12 Hours) Vital Signs Temp Pulse Pulse Resp BP Pulse Ox O2 Del Method 08/25/23 07:37 36.3 C L 85 18 130/75 98 Room Air 08/25/23 07:20 83 08/25/23 03:16 36.6 C 95 H 20 141/76 H 96 Room Air 08/25/23 00:49 36.5 C 90 20 126/68 94 Room Air 08/24/23 22:02 122 H Resident Activity Tracking Resident Involvement: Resident Care Provided Care Provided: Adult Hospital Medicine (2) Urinary tract infection Hematuria presence: without hematuria Urinary tract infection type: site unspecified Qualified Code(s): N39.0 - Urinary tract infection, site not specified (4) Coronary artery disease Associated angina: without angina Coronary Disease-Associated Artery/Lesion type: unspecified vessel or lesion type [place] vs. transplanted heart: [place] heart Qualified Code(s): I25.10 - Atherosclerotic heart disease of [place] coronary artery without angina pectoris (5) Hypertension Hypertension type: unspecified Qualified Code(s): I10 - Essential (primary) hypertension (6) Hyperlipidemia Hyperlipidemia type: unspecified Qualified Code(s): E78.5 - Hyperlipidemia, unspecified
[2023-08-25] MEDS: APIXABAN 5 MG TABLET PO SCH ×2 (08:58→20:18)
[2023-08-25] MEDS ORDERED: METOPROLOL SUCC 50MG EXT REL TAB PO SCH (09:00)
[2023-08-25] MEDS: cephALEXin 250 MG CAP PO SCH ×4 (10:32→20:20)
--- NOTE | 2023-08-25 11:51 | Cardiology Progress Note ---
Date of Service August 25, 2023 Assessment & Plan (1) Atrial fibrillation: (2) Chest pain: (3) Coronary artery disease: (4) Tachy-miguel syndrome: Plan 1. Atrial fibrillation: Presumably new onset Saturday, his checks his rhythm frequently and although he is asymptomatic this probably started sometime Saturday afternoon. Still with asymptomatic atrial fibrillation of uncertain duration (although likely brief) I preferred to try pursue rate control and anticoagulation, he may convert on his own. So far he has not however and I am concerned that he may convert to a slow rhythm if he would go home. In the past he did not do well on metoprolol 100 mg daily and may do worse now as his sinus bradycardia may have worsened. I am reluctant to go up on rate control medications with this history. The best option might be to cardiovert tomorrow morning if he remains in atrial fibrillation. I am going to arrange that. We should do the cardioversion before he gets his morning metoprolol so if he does convert to a slow heart rate it will hopefully recover fairly quickly. I also discussed the possibility of a pacemaker with he and his and we may end up doing that this admission depending on what happens with the cardioversion. 2. Chest pain: This was very vague and not clearly anginal, possibly related to the rhythm, with essentially negative enzymes I do not think we have to pursue this. 3. Coronary disease: He has known coronary artery disease. His cardiac enzymes (high-sensitivity troponin) were minimally elevated on presentation with no particular trend. This is consistent with low-grade demand ischemia and not myocardial infarction. I would not pursue further at this time. 4. Tachybradycardia syndrome: In the past he has had atrial arrhythmias and sinus bradycardia and thoughts of pacemaker implantation were entertained but his rhythm could be adequately controlled. Now with presentation rapid atrial fibrillation and most likely he will have future events, if he converts to a slow rhythm we should reconsider pacemaker implantation. Ideally we would get his heart rate better controlled currently but I am reluctant to go up on medications with his history of bradycardia. Admission and Anticipated Discharge Date Admission Date: August 24, 2023 Subjective He is asymptomatic with his arrhythmia although he remains in atrial fibrillation. He has had no further chest discomfort which was somewhat vague on presentation. His is present and describes to me again that he was quite fatigued and had difficulty when he was on 100 mg daily of metoprolol in the past. She checks his pulse very frequently throughout the day and she is quite confident that this rhythm started the afternoon of August 23, 2023. Physical Exam Physical Exam: Constitutional: Alert, cooperative and in no distress. HEENT: Unremarkable Neck: No jugular venous distention, carotid pulses are irregular but otherwise normal and equal bilaterally without bruits. Pulmonary: Clear to auscultation bilaterally. Cardiac: Irregular rhythm with no murmur, gallop or rub. Abdomen: Soft, nontender with normal bowel sounds. Extremities: No edema. Distal pulses intact. Neurologic: No focal findings. Gait is steady. Skin: No rash, ecchymoses or petechiae. Results & Data Vital Signs (Past 12 Hours) Vital Signs Temp Pulse Pulse Resp BP Pulse Ox O2 Del Method 08/25/23 11:17 36.5 C 88 20 129/82 98 Room Air 08/25/23 07:37 36.3 C L 85 18 130/75 98 Room Air 08/25/23 07:20 83 08/25/23 03:16 36.6 C 95 H 20 141/76 H 96 Room Air 08/25/23 00:49 36.5 C 90 20 126/68 94 Room Air Laboratory Results CBC 08/25/23 Range/Units 03:55 WBC 9.71 (4.8-10.8) K/ul RBC 3.51 L (4.70-6.10) M/uL Hgb 11.6 L (14.0-18.0) g/dl Hct 34.0 L (42.0-52.0) % Plt Count 277 (130-400) K/uL Neut # (Auto) 5.68 (1.40-6.50) K/uL Lymph # (Auto) 2.10 (1.20-3.40) K/uL [place] # (Auto) 0.94 H (0.11-0.59) K/uL Eos # (Auto) 0.42 (0.00-0.50) K/uL Baso # (Auto) 0.07 (0.00-0.20) K/uL Comprehensive Metabolic Panel 08/25/23 Range/Units 03:55 Sodium 136 (136-145) mmol/L Potassium 4.3 (3.5-5.1) mmol/L Chloride 106 (98-107) mmol/L Carbon Dioxide 24 (21-32) mmol/L BUN 29 H (6-23) mg/dl Creatinine 1.30 (0.6-1.4) mg/dl Glucose 103 H (70-99(Fasting)) mg/dl Calcium 8.4 L (8.6-10.3) mg/dl Albumin 3.3 L (3.4-5.0) gm/dl Intake and Output 08/24/23 08/25/23 08/25/23 22:59 06:59 14:59 Intake Total 440 / 1030.667 Balance 440 / 1030.667 Intake: Oral 440 / 560 Diagnostic Findings Telemetry: Atrial fibrillation, rate averaging 90 to 100 bpm since yesterday. PG Care Time/CCT Total # of Minutes Spent Total Time Spent with Patient: Total time spent is greater than 50% in coordination of care (as documented) at patient's floor/unit and/or counseling patient: Coding Level of Care Code 13016 SUB INP/OBS CARE 3/50MIN Diagnoses Atrial fibrillation I48.91 Atrial fibrillation type: unspecified Chest pain R07.9 Chest pain type: unspecified Coronary artery disease involving [place] heart without angina pectoris, unspecified vessel or lesion type I25.10 Coronary Disease-Associated Artery/Lesion type: unspecified vessel or lesion type [place] vs. transplanted heart: [place] heart Associated angina: without angina Tachy-miguel syndrome I49.5 (1) Atrial fibrillation Atrial fibrillation type: unspecified Qualified Code(s): I48.91 - Unspecified atrial fibrillation (2) Chest pain Chest pain type: unspecified Qualified Code(s): R07.9 - Chest pain, unspecified (3) Coronary artery disease Coronary Disease-Associated Artery/Lesion type: unspecified vessel or lesion type [place] vs. transplanted heart: [place] heart Associated angina: without angina Qualified Code(s): I25.10 - Atherosclerotic heart disease of [place] coronary artery without angina pectoris
--- NOTE | 2023-08-25 12:08 | Anesthesiology Consultation ---
Date of Service August 25, 2023 Assessment & Plan (1) Encounter for pre-operative examination: Chart Review Chart Review: Acceptable Risk for Surgery History Height/Weight Height: 5 ft 11 in Weight: 63 kg Allergies Allergy/AdvReac Type Severity Reaction Status Date / Time No Known Drug Allergies Allergy 0 Verified 08/23/23 10:52 Medications Home Medications Medication Instructions Recorded Confirmed Last Taken aspirin 81 mg tablet,delayed 81 mg PO QPM 10/24/20 08/24/23 10/23/20 release (Adult Low Dose Aspirin) cholecalciferol (vitamin D3) 25 1,000 units PO QAM 10/24/20 08/24/23 10/23/20 mcg (1,000 unit) capsule nitroglycerin 0.4 mg sublingual 0.4 mg sublingual Q5M PRN chest 04/03/22 08/24/23 Unknown tablet (Nitrostat) pain #25 tabs fluocinolone acetonide oil 0.01 % 5 drp otic (ear) BID PRN itching 7 11/30/22 08/24/23 Unknown ear drops days #20 mL atorvastatin 20 mg tablet 20 mg PO DAILY #90 tabs 07/09/23 08/24/23 Unknown metoprolol succinate 50 mg 50 mg PO QPM 08/18/23 08/24/23 Unknown tablet,extended release 24 hr amoxicillin 875 mg-potassium 1 tab PO BID #22 tabs 08/21/23 08/24/23 Unknown clavulanate 125 mg tablet sodium chloride 1,000 mg soluble 1,000 mg PO DAILY #15 tabs 08/21/23 08/24/23 Unknown tablet tamsulosin 0.4 mg capsule 0.4 mg PO HS #30 caps 08/21/23 08/24/23 Unknown lisinopril 20 mg tablet 20 mg PO DAILY #30 tabs 08/22/23 08/24/23 Unknown Active Medications Generic Name Dose Route Start Last Admin Trade Name Freq PRN Reason Stop Dose Admin Amoxicillin/Clavulanate Potassium 1 tab 08/24/23 09:00 08/24/23 09:17 Amoxicillin/Clavulanate 875 Mg Tab PO 09/03/23 08:59 Not Given BID [facility] Protocol Apixaban 5 mg 08/24/23 09:00 08/25/23 08:58 Apixaban 5 Mg Tablet PO 09/23/23 08:59 5 mg BID WHITNEY Administration Aspirin 81 mg 08/24/23 21:00 08/24/23 20:34 Aspirin 81 Mg Ectab PO 09/23/23 20:59 81 mg QPM WHITNEY Administration Atorvastatin Calcium 20 mg 08/24/23 21:00 08/24/23 20:34 Atorvastatin 20 Mg Tab PO 09/23/23 20:59 20 mg QPM WHITNEY Administration Cephalexin HCl 500 mg 08/24/23 17:00 08/25/23 10:32 Cephalexin 250 Mg Cap PO 09/03/23 16:59 500 mg QID WHITNEY Administration Protocol Lisinopril 20 mg 08/24/23 21:00 08/24/23 20:33 Lisinopril 20 Mg Tab PO 09/23/23 20:59 20 mg QPM WHITNEY Administration Metoprolol Succinate 100 mg 08/25/23 09:00 08/25/23 08:57 Metoprolol Succ 50mg Ext Rel Tab PO 09/24/23 08:59 100 mg QAM WHITNEY Administration Miscellaneous 1 each 08/24/23 16:00 08/25/23 08:57 Fluocinolone Acetonide Oil 0.01 % Drops ~ Order Awaiting Action N/A 09/23/23 15:59 Not Given QS WHITNEY Sodium Chloride 1 gm 08/24/23 21:00 08/24/23 20:33 Sodium Chloride 1 Gm Tablet PO 09/23/23 20:59 1 gm QPM WHITNEY Administration Tamsulosin HCl 0.4 mg 08/24/23 21:00 08/24/23 20:34 Tamsulosin Hcl 0.4 Mg Cap PO 09/23/23 20:59 0.4 mg HS WHITNEY Administration Past Medical History Medical History (Updated 08/25/23 @ 12:08 by Amrit Disla MD) Tachy-miguel syndrome Atrial fibrillation with RVR Ventricular tachycardia seen on cardiac nurse specialist Prediabetes Prostate cancer Hyperlipidemia Hypertension Coronary artery disease Past Family History Family History Father Cardiac disorder Myocardial infarction Mother Hypertension Stroke Brother Stroke Other Prostate cancer Denies family history of Ovarian cancer Breast cancer Colorectal cancer Past Surgical History Surgical History S/P CABG (coronary artery bypass graft) (2000) [place] 2 vessel History of prostate surgery H/O bilateral inguinal hernia repair History of colonoscopy Social History Smoking Status: Former smoker Do You Dip or Chew Tobacco: No Hx Alcohol Use: No Hx Substance Use: No Physical Exam Vital Signs Last Vital Signs Temp 36.5 C 08/25/23 11:17 Pulse 88 08/25/23 11:17 Resp 20 08/25/23 11:17 BP 129/82 08/25/23 11:17 Pulse Ox 98 08/25/23 11:17 O2 Del Method Room Air 08/25/23 11:17 Testing Laboratory Results 08/25/23 03:55 08/25/23 03:55 PT 10.9 Seconds (9.0-12.0) 08/24/23 01:50 INR 1.0 (0.9-1.1) 08/24/23 01:50 APTT 27 Seconds (21-31) 08/24/23 01:50 08/25/23 08/25/23 12:01 07:55 POC Glucose 104 H 101 H Echocardiogram Date: 08/19/23 EF: 50-55% moderate TR RV systolic pressure 30-40
[2023-08-25] MEDS: ATORVASTATIN 20 MG TAB PO SCH (20:18)
[2023-08-25] MEDS: TAMSULOSIN HCL 0.4 MG CAP PO SCH (20:19)
[2023-08-25] MEDS: lisinopril 20 MG TAB PO SCH (20:19)
[2023-08-25] MEDS: SODIUM CHLORIDE 1 GM TABLET PO SCH (20:19)
[2023-08-25] MEDS: ASPIRIN 81 MG ECTAB PO SCH (20:20)
--- NOTE | 2023-08-25 20:28 | Electrocardiogram Report ---
Test Reason : Blood Pressure : / mmHG Vent. Rate : 103 BPM Atrial Rate : 000 BPM P-R Int : 000 ms QRS Dur : 158 ms QT Int : 386 ms P-R-T Axes : 000 -83 054 degrees QTc Int : 505 ms Atrial fibrillation with rapid ventricular response Left axis deviation Right bundle branch block Abnormal ECG When compared with ECG of 18-AUG-2023 15:02, Atrial fibrillation has replaced Sinus rhythm Confirmed by Kameron Calles ([id number]) on 08/25/2023 8:28:48 PM Referred By: REFERRED SELF Confirmed By:Kameron Calles
[2023-08-26 06:12] LABS: Hematocrit (blood only) 34.4 % (42.0-52.0); Hemoglobin 11.8 g/dl (14.0-18.0); Mean Corpuscular Hemoglobin 33.2 pg (25.0-34.0); Mean Corpuscular Hgb Conc 34.3 g/dL (32.0-36.0); Mean Corpuscular Volume 96.9 fL (80.0-100.0); Mean Platelet Volume 9.7 fL (9.4-12.4); Platelet Count 279 K/uL (130-400); RDW Coefficient of Variation 12.2 % (11.5-14.5); RDW Standard Deviation 43.8 fL (36.4-46.3); Red Blood Count 3.55 M/uL (4.70-6.10); White Blood Count 7.62 K/ul (4.8-10.8)
[2023-08-26 06:26] LABS: Albumin Level 3.5 gm/dl (3.4-5.0); BUN Creatinine Ratio 21.1 (10-20); Calcium 8.5 mg/dl (8.6-10.3); Creatinine Clr Calc Pharmacy 50.5 ml/min; Est GFR (African American) 67.6 ml/min; Est GFR (Non-African American) 58.3 ml/min; Phosphorus 3.9 mg/dl (2.5-4.9); Potassium 4.3 mmol/L (3.5-5.1)
[2023-08-26] MEDS ORDERED: PROPOFOL IV EMULSION 10 MG/ML 20 ML VIAL IV ONE (07:02)
[2023-08-26] MEDS ORDERED: LIDOCAINE 2% 2 ML VIAL/AMP(20MG/ML) INFIL ONE (07:02)
--- NOTE | 2023-08-26 07:16 | Hospitalist Progress Note ---
Date of Service August 26, 2023 Assessment & Plan (1) Atrial fibrillation with RVR: (2) Urinary tract infection: (3) Acute hyponatremia: (4) Coronary artery disease: (5) Hypertension: (6) Hyperlipidemia: (7) Prostate cancer: (8) Prediabetes: (9) S/P CABG (coronary artery bypass graft): Plan 87 year old male admitted for Atrial fibrillation with RVR Atrial fibrillation with RVR: -HR changing from 100-125s, a flutter episodes overnight -HR usually in 40's-50's tachybrady syndrome -Monitor rhythm on telemetry. -Consulted cardiology. - Cardiovert tomorrow morning - NPO am - considering pacemaker in near future due to hx of bradycardia -Metoprolol succinate 100 mg am - hold tomorrow dose -Eliquis 5 mg BID Urinary tract infection: -From previous admission - No new symptoms -Continue Flomax. -Augmentin switch to Keflex hyponatremia -resolved -From previous admission, Na 134, continue daily salt tab. his hctz d/carlee last admission. -Na: 136 -Monitor BMP CAD s/p CABG 2000 HTN -Continue home lisinopril - HCTZ was removed on prior admission due to hyponatremic effects. HLD -Continue home statin. Prostate cancer: - LUTS -Noted. Continue Flomax. Prediabetes: -ACHS checks. Plan F/E/N/GI: Heart Healthy DVT Px: Eliquis Code status: DNR/DNI. Dispo: med/tele for cardiac monitoring. Admission and Anticipated Discharge Date Admission Date: August 24, 2023 Review of Systems Review of Systems: As per HPI. Results & Data Results & Data Vital Signs (Past 12 Hours) Vital Signs Temp Pulse Pulse Resp BP Pulse Ox O2 Del Method 08/26/23 03:47 36.9 C 82 18 114/75 97 Room Air 08/25/23 23:40 37.0 C 71 16 112/51 L 93 Room Air 08/25/23 21:54 70 08/25/23 19:36 36.5 C 85 18 128/71 95 Room Air (2) Urinary tract infection Hematuria presence: without hematuria Urinary tract infection type: site unspecified Qualified Code(s): N39.0 - Urinary tract infection, site not specified (4) Coronary artery disease Coronary Disease-Associated Artery/Lesion type: unspecified vessel or lesion type [place] vs. transplanted heart: [place] heart Associated angina: without angina Qualified Code(s): I25.10 - Atherosclerotic heart disease of [place] coronary artery without angina pectoris (5) Hypertension Hypertension type: unspecified Qualified Code(s): I10 - Essential (primary) hypertension (6) Hyperlipidemia Hyperlipidemia type: unspecified Qualified Code(s): E78.5 - Hyperlipidemia, unspecified
--- NOTE | 2023-08-26 07:51 | History & Physical Bridge Note ---
Date of Service August 26, 2023 History & Physical Bridge Note I have examined the patient, reviewed the History & Physical and rhythm and I have noted the following changes of clinical significance: no changes noted. I reviewed the indications, procedure, risks and alternatives with the patient, and answered all questions. Patient understands and agrees to the procedure. Consent obtained.
--- NOTE | 2023-08-26 08:08 | Cardioversion ---
Date of Service August 26, 2023 PG Electrical Cardioversion Rp Electrical Cardioversion Report The patient was brought to the laboratory being NPO after midnight and was identified in the laboratory, connected to the recording apparatus including electrocardiographic monitoring, noninvasive blood pressure monitoring and pulse oximetry. Anteroposterior patch electrodes were placed. The patient was anesthetized by the anesthesia department. Once adequate anesthesia was obtained a synchronized biphasic shock was delivered using 200 J with conversion to a sinus rhythm. The patient awoke from the anesthetic without sequela, will be observed briefly and then discharged. Coding Level of Care Code 99541 CARDIOVERSION, ELECTIVE Additional Codes Electrical Cardioversion Report ([id number])
--- NOTE | 2023-08-26 08:22 | Cardiology Progress Note ---
Date of Service August 26, 2023 Assessment & Plan (1) Atrial fibrillation: (2) Chest pain: (3) Coronary artery disease: (4) Tachy-miguel syndrome: Plan 1. Atrial fibrillation: Presumably new onset Saturday, his checks his rhythm frequently and although he is asymptomatic this probably started sometime Saturday afternoon. He remained in atrial fibrillation with a somewhat rapid heart rate, with his history of bradycardia it was problematic to increase rate control medications significantly although we did go back up to metoprolol succinate 100 mg daily (which he has side effects on in the past). He remained in atrial fibrillation so I did convert his rhythm this morning successfully. I would recommend continuing his current regimen and see if he tolerates the medication now, sometimes things change and he may. If he does not tolerate the medications or rhythm we can consider other options. At this time he does not have indication for pacemaker. He should remain on anticoagulation. 2. Chest pain: This was very vague and not clearly anginal, possibly related to the rhythm, with essentially negative enzymes I do not think we have to pursue this. 3. Coronary disease: He has known coronary artery disease. His cardiac enzymes (high-sensitivity troponin) were minimally elevated on presentation with no particular trend. This is consistent with low-grade demand ischemia and not myocardial infarction. I would not pursue further at this time. 4. Tachybradycardia syndrome: In the past he has had atrial arrhythmias and sinus bradycardia and thoughts of pacemaker implantation were entertained but his rhythm could be adequately controlled. Now with presentation rapid atrial fibrillation and most likely he will have future events, the rate is an adequately controlled on metoprolol succinate 100 mg daily although it is probably acceptable for brief periods of time. He did not convert to a slow rhythm therefore perhaps he can be controlled on his current regimen. This can be followed up as an outpatient, he typically follows with Dr. Currie. Admission and Anticipated Discharge Date Admission Date: August 24, 2023 Subjective He remained asymptomatic with his atrial fibrillation this morning, his rate was better controlled but still somewhat rapid so I did proceed with cardioversion which was successful with 1 external shock. He did not become bradycardic, he converted to a well-controlled sinus rhythm with a single shock. He took a little time to recover from the anesthetic (probably due to age) but there were no complications and he feels well now in sinus rhythm. Physical Exam Physical Exam: Constitutional: Alert, cooperative and in no distress. HEENT: Unremarkable Neck: No jugular venous distention, carotid pulses are normal and equal bilaterally without bruits. Pulmonary: Clear to auscultation bilaterally. Cardiac: Regular rhythm with no murmur, gallop or rub. Abdomen: Soft, nontender with normal bowel sounds. Extremities: No edema. Distal pulses intact. Neurologic: No focal findings. Skin: No rash, ecchymoses or petechiae. Results & Data Vital Signs (Past 12 Hours) Vital Signs Temp Pulse Pulse Resp BP Pulse Ox O2 Del Method 08/26/23 07:23 96 H 14 147/85 H 97 Room Air 08/26/23 03:47 36.9 C 82 18 114/75 97 Room Air 08/25/23 23:40 37.0 C 71 16 112/51 L 93 Room Air 08/25/23 21:54 70 Laboratory Results CBC 08/26/23 Range/Units 05:31 WBC 7.62 (4.8-10.8) K/ul RBC 3.55 L (4.70-6.10) M/uL Hgb 11.8 L (14.0-18.0) g/dl Hct 34.4 L (42.0-52.0) % Plt Count 279 (130-400) K/uL Comprehensive Metabolic Panel 08/26/23 Range/Units 05:31 Sodium 137 (136-145) mmol/L Potassium 4.3 (3.5-5.1) mmol/L Chloride 107 (98-107) mmol/L Carbon Dioxide 25 (21-32) mmol/L BUN 24 H (6-23) mg/dl Creatinine 1.14 (0.6-1.4) mg/dl Glucose 100 H (70-99(Fasting)) mg/dl Calcium 8.5 L (8.6-10.3) mg/dl Albumin 3.5 (3.4-5.0) gm/dl Intake and Output 08/25/23 08/26/23 08/26/23 22:59 06:59 14:59 Intake Total 480 / 1080 120 / 1080 Balance 480 / 1080 120 / 1080 Intake: Oral 480 / 1080 120 / 1080 Other: Other Intake Source Strict NPO # Unmeasured Voids 2 1 Weight 78.3 kg 78.3 kg Weight Measurement Method Standing Scale Patient Weight 08/27/23 06:59 Weight 78.3 kg PG Care Time/CCT Total # of Minutes Spent Total Time Spent with Patient: Total time spent is greater than 50% in coordination of care (as documented) at patient's floor/unit and/or counseling patient: Coding Diagnoses Atrial fibrillation I48.91 Atrial fibrillation type: unspecified Chest pain R07.9 Chest pain type: unspecified Coronary artery disease involving [place] heart without angina pectoris, unspecified vessel or lesion type I25.10 Coronary Disease-Associated Artery/Lesion type: unspecified vessel or lesion type [place] vs. transplanted heart: [place] heart Associated angina: without angina Tachy-miguel syndrome I49.5 (1) Atrial fibrillation Atrial fibrillation type: unspecified Qualified Code(s): I48.91 - Unspecified atrial fibrillation (2) Chest pain Chest pain type: unspecified Qualified Code(s): R07.9 - Chest pain, unspecified (3) Coronary artery disease Coronary Disease-Associated Artery/Lesion type: unspecified vessel or lesion type [place] vs. transplanted heart: [place] heart Associated angina: without angina Qualified Code(s): I25.10 - Atherosclerotic heart disease of [place] coronary artery without angina pectoris
[2023-08-26] MEDS: APIXABAN 5 MG TABLET PO SCH (09:05)
[2023-08-26] MEDS: cephALEXin 250 MG CAP PO SCH ×2 (09:05→12:24)
--- NOTE | 2023-08-26 10:21 | Electrocardiogram Report ---
Test Reason : Blood Pressure : / mmHG Vent. Rate : 075 BPM Atrial Rate : 122 BPM P-R Int : 260 ms QRS Dur : 168 ms QT Int : 436 ms P-R-T Axes : 008 -83 -25 degrees QTc Int : 486 ms Atrial flutter with premature ventricular or aberrantly conducted complexes Left axis deviation Right bundle branch block Abnormal ECG When compared with ECG of 24-AUG-2023 01:42, Atrial flutter has replaced Atrial fibrillation T wave inversion now evident in Inferior leads Confirmed by Juan Steiner ([id number]) on 08/26/2023 10:21:34 AM Referred By: REFERRED SELF Confirmed By:Juan Steiner
--- NOTE | 2023-08-26 10:31 | Anesthesiology Progress Note ---
Date of Service August 26, 2023 Anesthesia Post Procedure Vital Signs Vital Signs: Temp Pulse Pulse Resp BP BP Pulse Ox 08/26/23 08:33 63 14 119/60 95 08/26/23 07:23 96 H 14 147/85 H 97 08/26/23 03:47 36.9 C 82 18 114/75 97 08/25/23 23:40 37.0 C 71 16 112/51 L 93 08/25/23 21:54 70 08/25/23 19:36 36.5 C 85 18 128/71 95 08/25/23 15:45 36.7 C 95 H 20 113/71 95 08/25/23 15:22 94 H 08/25/23 11:17 36.5 C 88 20 129/82 98 O2 Del Method 08/26/23 08:33 Room Air 08/26/23 07:23 Room Air 08/26/23 03:47 Room Air 08/25/23 23:40 Room Air 08/25/23 21:54 08/25/23 19:36 Room Air 08/25/23 15:45 Room Air 08/25/23 15:22 08/25/23 11:17 Room Air Transfer of Care Handoff Completed per policy Notes Mental Status: alert / awake / arousable Patient Amnestic to Procedure: Yes Nausea / Vomiting: adequately controlled Pain: adequately controlled Airway Patency, RR, SpO2: stable & adequate BP & HR: stable & adequate Hydration State: stable & adequate Anesthetic Complications: no major complications apparent and Pt Satisfied with anesthetic care
--- NOTE | 2023-08-26 10:44 | Electrocardiogram Report ---
Test Reason : Blood Pressure : / mmHG Vent. Rate : 065 BPM Atrial Rate : 065 BPM P-R Int : 220 ms QRS Dur : 180 ms QT Int : 472 ms P-R-T Axes : 063 -81 010 degrees QTc Int : 490 ms Sinus rhythm with 1st degree A-V block with Premature supraventricular complexes Possible Left atrial enlargement Left axis deviation Right bundle branch block Abnormal ECG When compared with ECG of 26-AUG-2023 06:15, Premature ventricular complexes are no longer Present Sinus rhythm has replaced Atrial flutter Confirmed by Juan Steiner ([id number]) on 08/26/2023 10:43:33 AM Referred By: REFERRED SELF Confirmed By:Juan Steiner
--- NOTE | 2023-08-26 13:23 | Discharge Summary ---
Date of Service August 26, 2023 Admission HPI Per Admitting Provider Olvin is an 87 year old male w/ PmHx tachybrady syndrome, CAD s/p CABG 2000, HLD, HTN, prediabetes, prostate cancer coming into the ER due to erratic heart rates earlier in the day. Patient is accompanied by at the bedside. He had been in good health post discharge until they went to their primary care office for a transition of care visit from the last discharge. At the office they noticed his heart rate was 116 and then recheck showed 82. Usually his heart rate is 40's-50's. His heart rate continued to be sporadic throughout the day worrying the patient and his , however the patient was not experiencing any symptoms. They called the cardiology office to speak with the customer service sales consultant team and they were recommended to go to the ER for evaluation of A fib with RVR. Patient denies any fevers, chills, new chest pain, shortness of breath, nausea, diaphoresis. In the ER, Na 134, K 4.1, Mg 2.1, trop 53.7, lyme negative, D-dimer 2890. CTA of the chest did not show any evidence for PE or any acute process. Patient's HR oscillated in the room mostly in the 80's to 110's with jumps to 130's and 155 at the max. The stated this is the highest she's ever seen for his HR. Admission Exam Per Admitting Provider Constitutional: WD/WN, vitals as above ENMT: external ear and nose normal, oropharynx normal Respiratory: normal respiratory effort, lungs clear to auscultation Cardiovascular: Rate/Rhythm: + irregularly irregular Heart Sounds: normal S1 and normal S2 No peripheral edema. Chest (Breasts): normal inspection/palpation of breasts Gastrointestinal (Abdomen): normal bowel sounds, soft, nontender, no hepatosplenomegaly Psychiatric: A+Ox3, euthymic affect Principal Diagnosis Atrial Fibrillation Discharge Exam Constitutional WD/WN, vitals as above Respiratory normal respiratory effort, lungs clear to auscultation Cardiovascular RRR, no murmur, no edema Gastrointestinal (Abdomen) normal bowel sounds, soft, nontender, no hepatosplenomegaly Musculoskeletal no cyanosis or clubbing, extremities motor strength 5/5 Discharge Data Allergies Allergy/AdvReac Type Severity Reaction Status Date / Time No Known Drug Allergies Allergy 0 Verified 08/23/23 10:52 Consultations 08/24/23 05:23 ED Decision to Admit Stat 08/24/23 07:57 Consult Cardiology Routine 08/25/23 11:52 Consult Anesthesiology Routine Procedures Performed Operation Date: 08/26/23 07:15 Actual Procedures p Cardioversion - Kameron Calles MD Ordered Studies 08/24/23 02:37 CT angio chest PE protocol Stat Labs 08/24/23 08/24/23 08/24/23 01:50 03:44 11:45 WBC 8.88 RBC 3.66 L Hgb 12.3 L Hct 35.4 L MCV 96.7 MCH 33.6 MCHC 34.7 RDW Std Deviation 43.8 RDW Coeff of Renetta 12.2 Plt Count 248 MPV 9.7 Immature Gran % (Auto) 5.5 Neut % (Auto) 53.3 Lymph % (Auto) 23.6 [place] % (Auto) 13.0 Eos % (Auto) 3.9 Baso % (Auto) 0.7 Neut # (Auto) 4.73 Lymph # (Auto) 2.10 [place] # (Auto) 1.15 H Eos # (Auto) 0.35 Baso # (Auto) 0.06 Immature Gran # (Auto) 0.49 H RBC Morphology PT 10.9 INR 1.0 APTT 27 PTT Ratio 1.0 D-Dimer 2890 H* Sodium 134 L Potassium 4.1 Chloride 105 Carbon Dioxide 22 Anion Gap 7 BUN 36 H Creatinine 1.18 Est Cr Clr Drug Dosing 40.8 Est GFR ( Amer) 64.8 Est GFR (Non-Af Amer) 55.9 BUN/Creatinine Ratio 30.5 H Glucose 106 H POC Glucose 117 H Calcium 8.6 Phosphorus Magnesium 2.1 Troponin I High Sens 52.6 H* 53.7 H* Albumin Lipase 25 Lyme Disease IgG Ab Lyme Disease IgM Ab 08/24/23 08/24/23 08/24/23 17:02 20:49 Unknown WBC RBC Hgb Hct MCV MCH MCHC RDW Std Deviation RDW Coeff of Renetta Plt Count MPV Immature Gran % (Auto) Neut % (Auto) Lymph % (Auto) [place] % (Auto) Eos % (Auto) Baso % (Auto) Neut # (Auto) Lymph # (Auto) [place] # (Auto) Eos # (Auto) Baso # (Auto) Immature Gran # (Auto) RBC Morphology PT INR APTT PTT Ratio D-Dimer Sodium Potassium Chloride Carbon Dioxide Anion Gap BUN Creatinine Est Cr Clr Drug Dosing Est GFR ( Amer) Est GFR (Non-Af Amer) BUN/Creatinine Ratio Glucose POC Glucose 141 H 116 H Calcium Phosphorus Magnesium Troponin I High Sens Albumin Lipase Lyme Disease IgG Ab Negative Lyme Disease IgM Ab Negative 08/25/23 08/25/23 08/25/23 03:55 07:55 12:01 WBC 9.71 RBC 3.51 L Hgb 11.6 L Hct 34.0 L MCV 96.9 MCH 33.0 MCHC 34.1 RDW Std Deviation 44.0 RDW Coeff of Renetta 12.4 Plt Count 277 MPV 9.6 Immature Gran % (Auto) 5.1 Neut % (Auto) 58.6 Lymph % (Auto) 21.6 [place] % (Auto) 9.7 Eos % (Auto) 4.3 Baso % (Auto) 0.7 Neut # (Auto) 5.68 Lymph # (Auto) 2.10 [place] # (Auto) 0.94 H Eos # (Auto) 0.42 Baso # (Auto) 0.07 Immature Gran # (Auto) 0.50 H RBC Morphology Unremarkable PT INR APTT PTT Ratio D-Dimer Sodium 136 Potassium 4.3 Chloride 106 Carbon Dioxide 24 Anion Gap 6 BUN 29 H Creatinine 1.30 Est Cr Clr Drug Dosing 37.0 Est GFR ( Amer) 57.7 Est GFR (Non-Af Amer) 49.8 BUN/Creatinine Ratio 22.3 H Glucose 103 H POC Glucose 101 H 104 H Calcium 8.4 L Phosphorus 3.6 Magnesium 1.9 Troponin I High Sens Albumin 3.3 L Lipase Lyme Disease IgG Ab Lyme Disease IgM Ab 08/25/23 08/25/23 08/26/23 17:20 20:17 05:31 WBC 7.62 RBC 3.55 L Hgb 11.8 L Hct 34.4 L MCV 96.9 MCH 33.2 MCHC 34.3 RDW Std Deviation 43.8 RDW Coeff of Renetta 12.2 Plt Count 279 MPV 9.7 Immature Gran % (Auto) Neut % (Auto) Lymph % (Auto) [place] % (Auto) Eos % (Auto) Baso % (Auto) Neut # (Auto) Lymph # (Auto) [place] # (Auto) Eos # (Auto) Baso # (Auto) Immature Gran # (Auto) RBC Morphology PT INR APTT PTT Ratio D-Dimer Sodium 137 Potassium 4.3 Chloride 107 Carbon Dioxide 25 Anion Gap 5 BUN 24 H Creatinine 1.14 Est Cr Clr Drug Dosing 50.5 Est GFR ( Amer) 67.6 Est GFR (Non-Af Amer) 58.3 BUN/Creatinine Ratio 21.1 H Glucose 100 H POC Glucose 93 149 H Calcium 8.5 L Phosphorus 3.9 Magnesium 2.0 Troponin I High Sens Albumin 3.5 Lipase Lyme Disease IgG Ab Lyme Disease IgM Ab 08/26/23 11:58 WBC RBC Hgb Hct MCV MCH MCHC RDW Std Deviation RDW Coeff of Renetta Plt Count MPV Immature Gran % (Auto) Neut % (Auto) Lymph % (Auto) [place] % (Auto) Eos % (Auto) Baso % (Auto) Neut # (Auto) Lymph # (Auto) [place] # (Auto) Eos # (Auto) Baso # (Auto) Immature Gran # (Auto) RBC Morphology PT INR APTT PTT Ratio D-Dimer Sodium Potassium Chloride Carbon Dioxide Anion Gap BUN Creatinine Est Cr Clr Drug Dosing Est GFR ( Amer) Est GFR (Non-Af Amer) BUN/Creatinine Ratio Glucose POC Glucose 96 Calcium Phosphorus Magnesium Troponin I High Sens Albumin Lipase Lyme Disease IgG Ab Lyme Disease IgM Ab Chest X-Ray 08/24/23 01:47 SINGLE VIEW CHEST CLINICAL HISTORY: Atypical chest pain. FINDINGS: An AP, portable, upright chest radiograph is compared to study dated 08/18/2023. The patient is status post midline sternotomy. The heart is enlarged noting atherosclerotic calcification of the thoracic aorta. There is mild pulmonary vascular congestion There is bibasilar scarring/atelectasis. No airspace consolidation or large pleural effusions identified. No pneumothorax is seen. The skeletal structures are osteopenic. The bony thorax is grossly intact. Arthritic change is seen in the shoulders. IMPRESSION: Cardiomegaly with mild pulmonary vascular congestion. ACT 112: Negative or not required by law. Electronically signed by: Jan Leal M.D. 08/24/2023 7:11 AM Chest CTA 08/24/23 02:37 Exam(s): CTA CHEST EXAM: CT Angiography Chest With Intravenous Contrast CLINICAL HISTORY: Reason for exam: ro PE. TECHNIQUE: Axial computed tomographic angiography images of the chest with intravenous contrast. CTDI is 20.97 mGy and DLP is 714.96 mGy-cm. Automated exposure control was utilized for the study. A dose lowering technique was utilized adhering to the principles of ALARA. MIP reconstructed images were created and reviewed. COMPARISON: No relevant prior studies available. FINDINGS: Pulmonary arteries: Unremarkable. No pulmonary embolism. Aorta: No acute findings. No thoracic aortic aneurysm. Lungs: Unremarkable. No mass. No consolidation. Pleural space: Unremarkable. No significant effusion. No pneumothorax. Heart: Unremarkable. No cardiomegaly. No significant pericardial effusion. No evidence of RV dysfunction. Bones/joints: No acute fracture. No dislocation. Soft tissues: Unremarkable. Lymph nodes: Unremarkable. No enlarged lymph nodes. IMPRESSION: Normal chest CTA. No pulmonary embolism. Electronically signed by: Ke Amador MD 08/24/23 05:34 AM Hospital Course (1) Atrial fibrillation with RVR: (2) Urinary tract infection: (3) Acute hyponatremia: (4) Coronary artery disease: (5) Hypertension: (6) Hyperlipidemia: (7) Prostate cancer: (8) Prediabetes: (9) S/P CABG (coronary artery bypass graft): Plan 87 year old male admitted for Atrial fibrillation with RVR Atrial fibrillation with RVR: -Asymptomatic irregularly irregular HR 100-125s -HR usually in 40's-50's - tachybrady syndrome -Monitor rhythm on telemetry. -Consulted cardiology- After Cardioversion patient returned to sinus rhythm. -Metoprolol succinate 100 mg am -Eliquis 5 mg BID Urinary tract infection: -From previous admission - No new symptoms -Continue Flomax. -Augmentin switch to Keflex, to continue the rest of treatment hyponatremia -resolved -From previous admission, Na 134, -Na: 136-137 -Hold salt tabs -Monitor BMP outpatient CAD s/p CABG 2000, stable HTN -Continue home lisinopril HLD -Continue home statin. Prostate cancer: - LUTS -Noted. Continue Flomax. Total Time Total Time Spent Total Time Spent (In Minutes): <30 Discharge Plan Discharge Items Patient Disposition: Home - Self-Care Reason For Visit: ATRIAL FIBRILLATION Discharge Diagnosis: Atrial Fibrillation Activity: Per Instructions section Non-emergency contact: Primary Care Provider Call non-emergency contact if: you have any medication questions, your symptoms worsen and you have a fever Follow-up/Referrals: Bogdan Poole MD [Primary Care Provider] - 09/02/23 1:00 pm Diet: Heart Healthy Addtl Attending Provider Instructions: During your admission you were found with Atrial fibrillation. Your heart was rajesh more fast than normal. Cardiology was consulted. You had an a procedure called cardioversion, where your HR return to normal sinus rhythm. We started you on a medication called Metoprolol Succinate 100 mg. You will take this medication once daily in the morning. Additionally we put you on a medication called Eliquis. This is an anticoagulation med that will prevent forming thrombus on your heart. You will take Eliquis 5 mg twice a day Additionally we switch the antibiotics for Keflex, you will take the 500 mg four times a day. For the rest of the course, 10 days left. Follow-up appointments: Make a follow-up appointment with your PCP within the next week. It is very important that you follow up with them shortly after discharge from the hospital. Keep all your follow-up appointments as already scheduled. If you cannot make an appointment, notify your provider. Medications: Your medication list has been reviewed and reconciled upon discharge to ensure accuracy and continuity of care. An updated list of all your medications is included with your hospital discharge paperwork. Please review this list closely, and make note of any changes Take your medications as instructed; do not skip a dose of your medicines. Make sure all of your doctors know every medicine you are taking (including pcnk-jxh-amfrefs medicines, vitamins, and supplements). Call your primary care provider before taking any new medicines (including [id number] medicines, vitamins, and supplements), because some of these may interact with your current medications, or may make your symptoms worse. Tell your primary care provider if you cannot afford your medications. CONTACT YOUR PRIMARY CARE PROVIDER if you experience any of the following: Difficulty following your treatment plan, or difficulty taking medications CALL 911 OR GO TO THE EMERGENCY DEPARTMENT if you experience any of the following: Sudden, severe abdominal pain or nausea/vomiting Severe chest pain, or chest pain that radiates (moves) to your jaw or arm Sudden, severe shortness of breath or difficulty breathing Thank you for allowing us to participate in your care. Pending Studies at Discharge: No Stand-Alone Forms: My [facility], Smoking Cessation Medications and DC Order Prescriptions: New Eliquis 5 mg Tablet 5 mg PO BID 30 Days Qty: 60 0RF metoprolol succinate 50 mg Tablet Extended Release 24 Hr 100 mg PO QAM 30 Days Qty: 60 0RF cephalexin 500 mg capsule 500 mg PO BID 10 Days Qty: 20 0RF Continued nitroglycerin [Nitrostat] 0.4 mg tablet, sublingual 0.4 mg SL Q5M PRN (Reason: chest pain) Qty: 25 5RF Rx Instructions: until response; do not exceed 3 doses per episode lisinopril 20 mg tablet 20 mg PO DAILY Qty: 30 5RF fluocinolone acetonide oil 0.01 % drops 5 drp otic (ear) BID PRN (Reason: itching) 7 Days Qty: 20 0RF atorvastatin 20 mg tablet 20 mg PO DAILY Qty: 90 3RF aspirin [Adult Low Dose Aspirin] 81 mg tablet,delayed release (DR/EC) 81 mg PO QPM cholecalciferol (vitamin D3) 1,000 unit capsule 1,000 units PO QAM tamsulosin 0.4 mg Capsule 0.4 mg PO HS Qty: 30 2RF Discontinued metoprolol succinate 50 mg tablet extended release 24 hr 50 mg PO QPM sodium chloride 1,000 mg Tablet,Soluble 1,000 mg PO DAILY Qty: 15 2RF amoxicillin-pot clavulanate 875-125 mg tablet 1 tab PO BID Qty: 22 0RF Discharge Orders: Discharge Order (Routine); Ordered 08/26/23 [facility] Data Admit Date/Time: 08/24/23 05:43 Attending Provider: Ke Hernandez Admit Provider: Joaquin Dugan Primary Care Provider: Bogdan Poole Other Providers: Ace Ellis; Uriel Currie; Julieth Barnes; Lexi Horne; Amaris Abad; Magdalena Nation; Amrit Disla; Lenny Ann; Wang Jones; Marcos Reddy; Becky Reddy; Alonso Apodaca; Melinda Downs; Issa Collins; Sabino Schneider; Abhi Ellis; Guillermo Garcia; Mag Brown; Pete Schuler; Angela Schuler; Hakan Walker; Polly Chin; John Salazar; My Vargas; Milena Zhao; [place] Cordon; Mila Chicas; Ammy Islas; Bonnie Galvan; Sara Urrutia; Danny Urrutia V; Pancho Britt; Lexi Mujica; Last Whelan; Louise Black; Danny De León; Salbador Brown; Dylon Loza; Urvashi Dixon; Mary Domínguez; Danny Isaac; Fabricio Serra; Lucy Plasencia; Jan Waldrop; Cathy Cruz; Kaela Dumas; Teddy Beckford; Orlando Garcia; Vilma Vazquez; Gaby Nguyen; Jovanni Fields; Bogdan Jeffrey; Amrit Dias Jr; Rosio Matias; Pattie Ruiz ADaniele; Farheen Howell; [place] Diehl; Judy Post; Marcos Bonds; Alexey Donis I.; Betsy Mijares S.; Pattie Anguiano A.; Nicholas Lama; Regan Kruger; Raji Calderón; Andrew Andino V.; Sarmad Del Rosario; Dorian Salvador; Surendra Hawkins; Sydney Elizondo; Tika Vásquez; Radha Thompson Other Interventions: Discharge Summary Assessment (RN) Last Done: 08/26/23 13:00 Supervising Physician Co-Signing Physician Notes I personally examined the patient and verified all miller points of history and exam, discussed case, and agree with decision making with Dr Gilbert Moser feels good and would very much like to go home updated to the best of my ability/answered all questions to pt/'s satisfacti on vitals noted nad heent nc at mmm breathing unlabored no accessory muscles good effort skin no rashes no pallor or icterus neuro no focal deficits new dx afib/RVR - now s/p cardioversion. continue metoprolol. continue anticoagulation. outpt f/u. UTI - possible prostatitis - ongoing abx, urology f/u already scheduled otherwise as above
--- NOTE | 2023-08-26 13:42 | Billing Data ---
Date of Service August 26, 2023 Coding Level of Care Code 43028 IN/OBS DISCH 30 MIN/LESS
== END 2023-08-26 13:15 | disposition home or self-care (01) | DRG 309 ==
LOC: SUATTDRO → ED 01:32 → SUATTDRO 05:43 → EDINP 05:43 → INTOOBSV 05:43 → 2W 14:20